=== PATIENT | male | born 1975 | race Two or more races ===

== ENCOUNTER 2020-05-10 13:43 | Outpatient (REF) | payer OTHER, SELFPAY | END 2020-05-10 13:44 | disposition home or self-care (01) | LOC: HO.HMGCLDS 13:43 | PROVIDERS: Visit Provider Nurse Practitioner Family | DX: Z13.89 Encounter for screening for other disorder (principal) ==

== ENCOUNTER 2020-05-11 15:28 | Outpatient (REF) | payer OTHER, SELFPAY | END 2020-05-11 15:29 | disposition home or self-care (01) | LOC: HO.LAB 15:28 | PROVIDERS: Visit Provider Nurse Practitioner Family | DX: Z20.822 Contact with and (suspected) exposure to COVID-19 (principal) | CPT/HCPCS: 36415; U0003 ==

== ENCOUNTER 2020-05-19 06:15 | Outpatient (REF) | payer OTHER, SELFPAY ==
[2020-05-19 06:56] LABS: MANUAL DIFF FLAG NO
[2020-05-19 07:02] LABS: Basophils Absolute Auto 0.1 X10*3/uL (0.0-0.2); Basophils Percent Auto 1.6 % (0-2); Eosinophils Absolute Auto 0.5 X10*3/uL (0.0-0.4); Eosinophils Percent Auto 7.8 % (0-4); Hematocrit 48.8 % (42-52); Imm Gran Abs Auto 0.01 X10*3/uL (0.00-0.03); Imm Gran Pct Auto 0.2 % (0.0-0.4); Lymphocytes Absolute Auto 2.3 X10*3/uL (1.2-4.9); Mean Corpuscular HGB Conc 34.8 g/dl (31.0-36.0); Mean Corpuscular Hemoglobin 31.4 pg (27.0-33.0); Mean Corpuscular Volume 90.2 fL (80-98); Mean Platelet Volume 10.6 fL (9.4-12.4); Monocytes Absolute Auto 0.9 X10*3/uL (0.1-1.2); Monocytes Percent Auto 13.2 % (2-11); Neutrophils Absolute Auto 2.7 X10*3/uL (2.0-8.3); Neutrophils Percent Auto 41.2 % (45-73); Platelet Count 246 X10*3/uL (160-400); Red Blood Count 5.41 X10*6/uL (4.60-5.80); Red Cell Distribution Width 11.7 % (11.0-16.0); White Blood Count 6.4 X10*3/uL (4.8-10.8)
[2020-05-19 07:29] LABS: Alanine Aminotransferase 29 U/L (0-40); Albumin Level 4.5 g/dL (3.5-5.0); Alkaline Phosphatase 70 U/L (39-117); Aspartate Amino Transferase 19 U/L (5-37); Bilirubin Direct 0.4 mg/dL (0.0-0.5); Bilirubin Total 1.1 mg/dL (0.0-1.0)
[2020-05-19 07:39] LABS: Alanine Aminotransferase 28 U/L (0-40); Albumin Level 4.5 g/dL (3.5-5.0); Alkaline Phosphatase 70 U/L (39-117); Amylase 92 U/L (28-100); Anion Gap 9 (12-20); Aspartate Amino Transferase 19 U/L (5-37); Bilirubin Total 1.1 mg/dL (0.0-1.0); Blood Urea Nitrogen 16 mg/dL (9-16); Carbon Dioxide 31 mmol/L (22-29); Chloride 103 mmol/L (96-108); Estimated Glomerular Filt Rate > 60; Glucose Random 93 mg/dL (60-115); Lipase 73 U/L (8-78); Potassium 4.4 mmol/l (3.3-5.1); Sodium 139 mmol/L (135-145); Total Protein 6.9 g/dL (6.5-8.0)
[2020-05-19 07:51] LABS: TSH reflex Free T4 3.75 mIU/mL (0.32-4.0)
[2020-05-19 08:00] LABS: Estimated Average Glucose 100 mg/dL; Hemoglobin A1c % 5.1 %
[2020-05-20 16:22] LABS: Venous Lead <1 mcg/dL (<5)
== END 2020-05-19 06:16 | disposition home or self-care (01) ==
LOC: HO.LAB 06:15
PROVIDERS: PCP Internal Medicine; Referring Provider Nurse Practitioner Family; Visit Provider Nurse Practitioner Family
DX: R10.13 Epigastric pain (principal); Z87.19 Personal history of other diseases of the digestive system; Z83.3 Family history of diabetes mellitus
CPT/HCPCS: 36415; 80053; 80076; 82150; 82248; 83036; 83655; 83690; 84443; 85025

== ENCOUNTER 2020-08-16 12:16 | Outpatient (REF) | payer OTHER, SELFPAY ==
[2020-08-16 13:06] LABS: COVID-19 Test Positive (Negative)
== END 2020-08-16 12:17 | disposition home or self-care (01) ==
LOC: HO.LAB 12:16
PROVIDERS: Visit Provider Internal Medicine
DX: Z20.822 Contact with and (suspected) exposure to COVID-19 (principal)
CPT/HCPCS: 36415; 87635; C9803

== ENCOUNTER 2021-07-25 05:36 | Emergency (ER) | payer OTHER, SELFPAY ==
--- NOTE | ~2021-07-25 | XR_ITS ---
EXAMINATION: XR CHEST CLINICAL INFORMATION: Chest pain COMPARISON: 06.15.2017 TECHNIQUE: Frontal view of the chest was obtained. FINDINGS: No significant abnormality is noted involving the heart, lungs, mediastinum, bony thorax or soft tissues. XR/XR chest 1V IMPRESSION: Unremarkable examination.
--- NOTE | 2021-07-25 05:37 | ECG_ITS ---
Test Reason : CP Blood Pressure : / mmHG Vent. Rate : 073 BPM Atrial Rate : 073 BPM P-R Int : 138 ms QRS Dur : 080 ms QT Int : 368 ms P-R-T Axes : 041 059 035 degrees QTc Int : 405 ms Normal sinus rhythm with sinus arrhythmia Normal ECG When compared to the previous EKG of No significant changes seen Referred By: Generic ED Physician Electronically Signed By:NAREN SAUNDERS MD
[2021-07-25 05:41] VITALS: BP 144/84; PULSE 80; RESP 18; TEMP 36.6; O2SAT 99; BMI 24.3
[2021-07-25 05:58] LABS: MANUAL DIFF FLAG NO
[2021-07-25 05:59] LABS: Basophils Absolute Auto 0.1 X10*3/uL (0.0-0.2); Basophils Percent Auto 1.3 % (0-2); Eosinophils Absolute Auto 0.4 X10*3/uL (0.0-0.4); Eosinophils Percent Auto 5.4 % (0-4); Hematocrit 47.7 % (42.0-52.0); Hemoglobin 16.7 g/dl (14.0-18.0); Imm Gran Abs Auto 0.02 X10*3/uL (0.00-0.03); Imm Gran Pct Auto 0.3 % (0.0-0.4); Lymphocytes Absolute Auto 2.2 X10*3/uL (1.2-4.9); Lymphocytes Percent Auto 31.7 % (20-40); Mean Corpuscular Hemoglobin 31.3 pg (27.0-33.0); Mean Corpuscular Volume 89.5 fL (80.0-98.0); Monocytes Absolute Auto 0.7 X10*3/uL (0.1-1.2); Monocytes Percent Auto 9.9 % (2-11); Neutrophils Absolute Auto 3.5 x10*3/uL (2.0-8.3); Neutrophils Percent Auto 51.4 % (45-73); Platelet Count 235 X10*3/uL (160-400); Red Blood Count 5.33 X10*6/uL (4.60-5.80); Red Cell Distribution Width 11.9 % (11.0-16.0); White Blood Count 6.8 X10*3/uL (4.8-10.8)
[2021-07-25 06:12] LABS: Anion Gap 11 (12-20); Blood Urea Nitrogen 14 mg/dL (9-16); Calcium 9.2 mg/dL (8.4-10.2); Carbon Dioxide 25 mmol/L (22-29); Chloride 107 mmol/L (96-108); Creatinine Clr Calc Pharmacy 113.5; Estimated Glomerular Filt Rate > 60; Glucose Random 122 mg/dL (60-115); Potassium 3.9 mmol/L (3.3-5.1); Sodium 139 mmol/L (135-145)
[2021-07-25 06:19] LABS: Troponin-I High Sensitivity < 3.5 ng/L (<3.5-35.0)
[2021-07-25 07:56] LABS: Troponin-I High Sensitivity < 3.5 ng/L (<3.5-35.0)
--- NOTE | 2021-07-25 08:35 | ED_ITS ---
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 3 days of intermittent chest pain. Worse with movement, denies injury, fever or cough. Not heavy lifting or injury. States the movement makes the pain worse and lying down. complaint: chest pain Onset (ago): day(s) Timing of current episode: episodic Onset: other (with upper body movement and deep breathing) Pain location: left chest Severity: mild Quality: aching Treatment prior to arrival: none Risk Factors Coronary artery disease risk factors: smoking history and cocaine use Related Data Previous Rx's Medication Instructions Recorded omeprazole 20 mg capsule,delayed 20 mg PO DAILY 14 Days #14 cap 05/10/20 release omeprazole 20 mg capsule,delayed 20 mg PO DAILY #30 cap 06/08/20 release albuterol sulfate 90 mcg/actuation 2 puff INHALATION Q6H PRN 90 Days 08/13/20 aerosol inhaler (ProAir HFA) #8.5 g albuterol sulfate 2.5 mg (3 mL) INHALATION QID PRN 11/25/20 #90 ml nebulizers (Aeroneb Go Nebulizer) #1 ea 11/25/20 benzonatate 100 mg capsule 100 mg PO TID PRN #20 cap 11/26/20 (Tessalon Perles) naproxen 500 mg tablet (Naprosyn) 500 mg PO BID #20 tab 07/25/21 Allergies Allergy/AdvReac Type Severity Reaction Status Date / Time shellfish derived Allergy Severe ANAPHYLAXIS Verified 05/10/20 13:01 [SHELLFISH DERIVED] Review of Systems Constitutional: Constitutional: Reports no additional constitutional complaints Eyes: Eyes: Reports no additional eye complaints ENT: Denies dizziness Cardiovascular: Cardiovascular: Reports no additional cardiovascular complaints Respiratory: Respiratory: Reports as per HPI Gastrointestinal: Gastrointestinal: Reports no additional gastrointestinal complaints Musculoskeletal: Musculoskeletal: Reports no additional musculoskeletal complaints Integumentary/Breasts: Skin/Breast: Denies rash Neurologic: Reports system reviewed and no additional complaints, except as documented, Denies dizziness and Denies Sensory deficit (Neuro) Psychiatric: Psychiatric: Denies anxiety PMFSH Past Medical History Medical History Family history of diabetes mellitus History of liver disease Family History Family History Father Heart problem Liver problem Mother Liver cancer Social History Social History Alcohol intake: never Advance Directives: No Advance Directives Information Provided: No Physical Exam Vital Signs: Vital Signs: Last Vital Signs Temp 97.9 F 07/25/21 05:41 Pulse 80 07/25/21 05:41 Resp 18 07/25/21 05:41 BP 144/84 H 07/25/21 05:41 Pulse Ox 99 07/25/21 05:41 BMI result Body Mass Index 24.3 Const: General: healthy appearing Nutritional Appearance: average body habitus Orientation/consciousness: oriented to person and patient oriented x3 Limitations: no limitations HEENT: Head: Yes normal to inspection Ears: external ears normal General nose exam: Normal external nose present Mouth: Normal oral and palatal mucosa present and oropharynx normal Throat: Yes posterior oropharynx normal Eyes: General: appearance normal, both eyes and all related structures Neck: Other: supple Neck: Yes normal visual inspection Chest: Other: left chest reproducible pain to palpation Resp: Auscultation: clear to auscultation bilaterally Cardio: Jugular venous distension: no JVD Rate: regular rate Rhythm: regular rhythm Heart sounds: S1 normal heart sound present and S2 normal heart sound present GI: Inspection: Yes normal to inspection Palpation (GI): Soft to palpation, nontender and No hepatosplenomegaly present Auscultation: normal bowel sounds : General: Yes no CVA tenderness Back/Spine/Pelvis: Back: no CVA tenderness Skin: General skin exam: no rashes or lesions noted Neuro: General: oriented to person and patient oriented x3 Cranial nerves: Yes CN's II-XII intact bilaterally Motor exam (neuro): 5/5 motor strength present throughout Sensory Exam: No Sensory deficit (Neuro) Extrem: General: Yes normal to inspection Psych: Appearance: grossly normal Course Reevaluation(s) Reevaluation #1: Patient with reproducible pain to palpation, normal EKG and serial troponins. It appears that the patient is having inflammation of the chest wall, will dc home Time: 08:45 MDM - Chest Pain Lab Data Result diagrams: 07/25/21 05:53 07/25/21 05:53 Labs: Lab Results 07/25/21 07/25/21 07/25/21 Range/Units 05:53 05:53 05:53 WBC 6.8 (4.8-10.8) X10*3/uL RBC 5.33 (4.60-5.80) X10*6/uL Hgb 16.7 (14.0-18.0) g/dl Hct 47.7 (42.0-52.0) % MCV 89.5 (80.0-98.0) fL MCH 31.3 (27.0-33.0) pg MCHC 35.0 (31.0-36.0) g/dl RDW 11.9 (11.0-16.0) % Plt Count 235 (160-400) X10*3/uL MPV 10.0 (9.4-12.4) fL Immature Gran % (Auto) 0.3 (0.0-0.4) % Neut % (Auto) 51.4 (45-73) % Lymph % (Auto) 31.7 (20-40) % [place] % (Auto) 9.9 (2-11) % Eos % (Auto) 5.4 H (0-4) % Baso % (Auto) 1.3 (0-2) % Lymph # (Auto) 2.2 (1.2-4.9) X10*3/uL [place] # (Auto) 0.7 (0.1-1.2) X10*3/uL Eos # (Auto) 0.4 (0.0-0.4) X10*3/uL Baso # (Auto) 0.1 (0.0-0.2) X10*3/uL Abs Immat Gran (auto) 0.02 (0.00-0.03) X10*3/uL Absolute Neuts (auto) 3.5 (2.0-8.3) x10*3/uL Absolute Nucleated RBC 0.000 (0.0-0.012) X10*3/uL Nucleated RBC % (auto) 0.0 (0.0-0.2) /100WBC Sodium 139 (135-145) mmol/L Potassium 3.9 (3.3-5.1) mmol/L Chloride 107 (96-108) mmol/L Carbon Dioxide 25 (22-29) mmol/L Anion Gap 11 L (12-20) BUN 14 (9-16) mg/dL Creatinine 0.83 (0.5-1.4) mg/dL Estim Creat Clear Calc 113.5 Estimated GFR > 60 Random Glucose 122 H (60-115) mg/dL Calcium 9.2 (8.4-10.2) mg/dL Troponin I High Sens < 3.5 (<3.5-35.0) ng/L 07/25/21 Range/Units 07:33 WBC (4.8-10.8) X10*3/uL RBC (4.60-5.80) X10*6/uL Hgb (14.0-18.0) g/dl Hct (42.0-52.0) % MCV (80.0-98.0) fL MCH (27.0-33.0) pg MCHC (31.0-36.0) g/dl RDW (11.0-16.0) % Plt Count (160-400) X10*3/uL MPV (9.4-12.4) fL Immature Gran % (Auto) (0.0-0.4) % Neut % (Auto) (45-73) % Lymph % (Auto) (20-40) % [place] % (Auto) (2-11) % Eos % (Auto) (0-4) % Baso % (Auto) (0-2) % Lymph # (Auto) (1.2-4.9) X10*3/uL [place] # (Auto) (0.1-1.2) X10*3/uL Eos # (Auto) (0.0-0.4) X10*3/uL Baso # (Auto) (0.0-0.2) X10*3/uL Abs Immat Gran (auto) (0.00-0.03) X10*3/uL Absolute Neuts (auto) (2.0-8.3) x10*3/uL Absolute Nucleated RBC (0.0-0.012) X10*3/uL Nucleated RBC % (auto) (0.0-0.2) /100WBC Sodium (135-145) mmol/L Potassium (3.3-5.1) mmol/L Chloride (96-108) mmol/L Carbon Dioxide (22-29) mmol/L Anion Gap (12-20) BUN (9-16) mg/dL Creatinine (0.5-1.4) mg/dL Estim Creat Clear Calc Estimated GFR Random Glucose (60-115) mg/dL Calcium (8.4-10.2) mg/dL Troponin I High Sens < 3.5 (<3.5-35.0) ng/L ECG Data ECG #1: Attestation: I personally reviewed and interpreted this ECG as follows: Interpretation: sinus 72, no st or twave changes Discharge Plan Discharge Clinical Impression: Chest pain, Costalchondritis Patient Disposition: Home, Self-Care Instructions: Costochondritis (ED), Thoracic Pain (ED) Prescriptions: New naproxen [Naprosyn] 500 mg tablet 500 mg PO BID Qty: 20 0RF No Action omeprazole 20 mg capsule,delayed release(DR/EC) 20 mg PO DAILY Qty: 30 0RF albuterol sulfate [ProAir HFA] 90 mcg/actuation HFA aerosol inhaler 2 puff inhalation Q6H PRN (Reason: shortness of breath or wheezing) 90 Days Qty: 8.5 0RF albuterol sulfate 2.5 mg /3 mL (0.083 %) solution for nebulization 2.5 mg inhalation QID PRN (Reason: shortness of breath or wheezing) Qty: 90 0RF (DME) Aeroneb Go Nebulizer Misc See Rx Instructions .Route Qty: 1 0RF Rx Instructions: As directed benzonatate [Tessalon Perles] 100 mg capsule 100 mg PO TID PRN (Reason: cough) Qty: 20 0RF omeprazole 20 mg capsule,delayed release(DR/EC) 20 mg PO DAILY 14 Days Qty: 14 0RF Referrals: Zay Angeles MD [Primary Care Provider] - 5 days
== END 2021-07-25 09:15 | disposition home or self-care (01) ==
PROVIDERS: Emergency Provider Emergency Medicine; PCP Internal Medicine
DX: R07.9 Chest pain, unspecified (principal); M94.0 Chondrocostal junction syndrome [Tietze]; F17.200 Nicotine dependence, unspecified, uncomplicated
CPT/HCPCS: 36415; 71045; 80048; 84484; 85025; 93005; 99283; 99284

== ENCOUNTER 2021-08-16 11:43 | Outpatient (REF) | payer OTHER, SELFPAY ==
[2021-08-16 12:37] LABS: Influenza A PCR POSITIVE (Negative); Influenza B PCR NEGATIVE (Negative); Resp Syncy Virus RNA Qual PCR NEGATIVE (Negative); SARS COV2 PCR INHOUSE NEGATIVE (Negative)
== END 2021-08-16 11:44 | disposition home or self-care (01) ==
LOC: HO.LNP 11:43
PROVIDERS: Visit Provider Nurse Practitioner Acute Care
DX: R68.89 Other general symptoms and signs (principal); Z20.822 Contact with and (suspected) exposure to COVID-19
CPT/HCPCS: 0241U

== ENCOUNTER 2021-12-01 11:41 | Outpatient (REF) | payer OTHER, SELFPAY ==
[2021-12-01 13:49] LABS: MANUAL DIFF FLAG NO
[2021-12-01 13:53] LABS: Basophils Absolute Auto 0.1 X10*3/uL (0.0-0.2); Basophils Percent Auto 1.4 % (0-2); Eosinophils Absolute Auto 0.4 X10*3/uL (0.0-0.4); Eosinophils Percent Auto 5.6 % (0-4); Hematocrit 47.7 % (42.0-52.0); Hemoglobin 17.1 g/dl (14.0-18.0); Imm Gran Abs Auto 0.02 X10*3/uL (0.00-0.03); Imm Gran Pct Auto 0.3 % (0.0-0.4); Lymphocytes Absolute Auto 2.5 X10*3/uL (1.2-4.9); Lymphocytes Percent Auto 34.5 % (20-40); Mean Corpuscular HGB Conc 35.8 g/dl (31.0-36.0); Mean Corpuscular Hemoglobin 31.4 pg (27.0-33.0); Mean Corpuscular Volume 87.5 fL (80.0-98.0); Mean Platelet Volume 10.3 fL (9.4-12.4); Monocytes Absolute Auto 0.9 X10*3/uL (0.1-1.2); Monocytes Percent Auto 11.9 % (2-11); Neutrophils Absolute Auto 3.3 x10*3/uL (2.0-8.3); Neutrophils Percent Auto 46.3 % (45-73); Platelet Count 269 X10*3/uL (160-400); Red Blood Count 5.45 X10*6/uL (4.60-5.80); Red Cell Distribution Width 12.2 % (11.0-16.0); White Blood Count 7.1 X10*3/uL (4.8-10.8)
[2021-12-01 14:12] LABS: Alanine Aminotransferase 34 U/L (0-40); Albumin Level 4.4 g/dL (3.5-5.0); Alkaline Phosphatase 62 U/L (39-117); Anion Gap 13 (12-20); Aspartate Amino Transferase 20 U/L (5-37); Bilirubin Total 0.7 mg/dL (0.0-1.0); Blood Urea Nitrogen 14 mg/dL (9-16); Carbon Dioxide 26 mmol/L (22-29); Chloride 106 mmol/L (96-108); Estimated Glomerular Filt Rate > 60; Glucose Random 86 mg/dL (60-115); Lactate Dehydrogenase 214 U/L (118-273); Potassium 4.1 mmol/L (3.3-5.1); Sodium 141 mmol/L (135-145); Total Protein 7.2 g/dL (6.5-8.0)
[2021-12-01 14:34] LABS: TSH reflex Free T4 20.07 uIU/mL (0.32-4.0)
[2021-12-01 14:42] LABS: Vitamin B12 841 pg/mL (200-900)
[2021-12-06 17:21] LABS: Vitamin D 25-OH, D2 <4 ng/mL; Vitamin D 25-OH, D3 17 ng/mL; Vitamin D 25-OH, Total 17 ng/mL (30-100)
== END 2021-12-01 11:42 | disposition home or self-care (01) ==
LOC: HO.HMGCLDS 11:41
PROVIDERS: PCP Internal Medicine; Visit Provider Internal Medicine
DX: M19.90 Unspecified osteoarthritis, unspecified site (principal); R14.0 Abdominal distension (gaseous); R52 Pain, unspecified; R53.83 Other fatigue
CPT/HCPCS: 36415; 80053; 82306; 82550; 82607; 83615; 84439; 84443; 85025

== ENCOUNTER 2021-12-29 09:03 | Outpatient (REF) | payer OTHER, SELFPAY ==
[2021-12-29 10:37] LABS: Free T4 (Free Thyroxine) 0.66 ng/dL (0.71-1.85); Thyroid Stimulating Hormone 17.06 uIU/mL (0.32-4.0)
== END 2021-12-29 09:04 | disposition home or self-care (01) ==
LOC: HO.LAB 09:03
PROVIDERS: PCP Internal Medicine; Visit Provider Internal Medicine
DX: E03.9 Hypothyroidism, unspecified (principal)
CPT/HCPCS: 36415; 84439; 84443

== ENCOUNTER 2022-01-10 10:59 | Outpatient (REF) | payer OTHER, SELFPAY ==
[2022-01-10 11:57] LABS: Binax Internal Control QC Valid; Binax Now Covid-19 Ag Negative (Negative)
== END 2022-01-10 11:00 | disposition home or self-care (01) ==
LOC: HO.HMGCLDS 10:59
PROVIDERS: Visit Provider Physician Assistant
DX: J06.9 Acute upper respiratory infection, unspecified (principal); Z20.822 Contact with and (suspected) exposure to COVID-19
CPT/HCPCS: 87811; C9803

== ENCOUNTER 2022-02-27 15:11 | Outpatient (AMB) | payer OTHER, SELFPAY ==
[2022-02-27 15:13] VITALS: BP 128/90; PULSE 80; TEMP 36.2; O2SAT 98; BMI 25.4
--- NOTE | 2022-02-27 15:13 | A.OFFPC_ITS ---
Vital Signs 02/27/22 15:13 Height 5 ft 9 in Weight 172 lb BMI 25.4 BP 128/90 H Blood Pressure Location Lt brachial Position Sitting Pulse 80 Pulse Source Pulse Oximeter Temp 97.1 F Temp Source Skin Pulse Oximetry (%) 98 Oxygen Delivery Method Room Air Intake Visit Reasons: follow up on labs Piping Blocker Required: No Allergies shellfish derived [SHELLFISH DERIVED] Allergy (Severe, Verified 02/27/22 15:14) ANAPHYLAXIS Tobacco use date assessed: 02/27/22 [facility] Medical History (Updated 01/11/22 @ 19:11 by Zay Angeles MD) Depression Family history of diabetes mellitus Hepatitis B core antibody positive History of drug abuse History of hepatitis C History of liver disease Hypertension Hypothyroidism (acquired) Vitamin D deficiency Surgical History (Updated 01/11/22 @ 18:59 by Zay Angeles MD) History of right knee surgery (~1996) No pertinent past surgical history Family History Father Heart problem Liver problem Mother Liver cancer Social History Housing: House Alcohol intake: never Patient Tobacco Use Status: Never used Tobacco e-Cigarette/Vaping Use: Never Used Second Hand Smoke Exposure: No service: No Current occupational status: employed Current occupational exposures/hazards: No Cognitive needs: No Hearing needs: No Vision needs: No Questionnaire PHQ-9 Over the last 2 weeks, how often have you been bothered by any of the following problems? 1. Little interest or pleasure in doing things: not at all 2. Feeling down, depressed, or hopeless: not at all 3. Trouble falling or staying asleep, or sleeping too much: not at all 4. Feeling tired or having little energy: not at all 5. Poor appetite or overeating: not at all 6. Feeling bad about yourself - or that you are a failure or have let yourself or your family down: not at all 7. Trouble concentrating on things, such as reading the newspaper or watching television: not at all 8. Moving or speaking so slowly that other people could have noticed. Or the opposite - being so fidgety or restless that you have been moving around a lot more than usual: not at all 9. Thoughts that you would be better off or of hurting yourself in some way: not at all Total score: 0 Depression Screening Interpretation: Negative 29256 - PHQ-9 Billing: Yes Source: Developed by Drs. Devyn Dugan, Maia Cox, Gurinder Arias and colleagues, with an educational carrillo from [employer]. Thrive Questionnaire Declines Thrive assessment: No Date Thrive assessed: 02/27/22 I am a: Patient What is your living situation today?: I have a steady place to live Within the past 12 months, did the food you bought not last and you didn't have the money to get more?: Never true Within the past 12 months, did you worry whether your food would run out before you got money to buy more?: Never true Do you have trouble paying for medicines?: No Do you have trouble getting transportation to medical appointments?: No Do you have trouble paying your heating and electricity bill?: No Do you have trouble taking care of your child, family member or friend?: No Do you have trouble with day-to-day activities such as bathing, preparing meals, shopping, managing finances, etc.?: No Are you currently unemployed and looking for a job?: No Are you interested in more education?: No Currently or been in a relationship where the following occur: no concerns reported AUDIT C Alcohol Use Questionnaire (AUDIT-C) 1. How often do you have a drink containing alcohol?: Never 3. How often do you have six or more drinks on one occasion?: Never Total Score: 0 Score Reviewed/Action Taken: No JONH-7 AMB Questionnaire JONH-7 Date JONH - 7 assessed: 01/11/22 Feeling nervous, anxious, or on edge: 0 = Not at all Not being able to stop or control worryin = Not at all Worrying too much about different things: 0 = Not at all Trouble relaxin = Not at all Being so restless that it is hard to sit still: 0 = Not at all Becoming easily annoyed or irritable: 0 = Not at all Feeling afraid as if something awful might happen: 0 = Not at all Total JONH-7 score (0-4 normal; 5-9 mild; 10-14 moderate; 15-21 severe): 0 Source: Developed by Drs. Devyn Dugan, Maia Cox, Gurinder Arias and colleagues, with an educational carrillo from [employer]. JONH-7 Assessment Billing JONH-7 Assessment Tool: JONH-7 Assessment 63160 Physical exam (Primary Care) Vital Signs: Last Vital Signs Temp 97.1 F 02/27/22 15:13 Pulse 80 02/27/22 15:13 BP 128/90 H 02/27/22 15:13 Pulse Ox 98 02/27/22 15:13 Oxygen Delivery Method Room Air 02/27/22 15:13 BMI result Body Mass Index 25.4 Tobacco/Smoking Status: Tobacco use Status Tobacco use date assessed 02/27/22 02/27/22 15:14 Patient Tobacco Use Status Never used Tobacco 02/27/22 15:14 e-Cigarette/Vaping Use Never Used 02/27/22 15:14 PHQ-9: PHQ-9 Score PHQ-9: Total score 0 02/27/22 15:14 Depression Screening Interpretation: Negative Thrive Assessment: Date of Thrive Assessment Date Thrive assessed 02/27/22 02/27/22 15:14 Currently or been in a relationship where the following occur: no concerns reported Assessment and Plan Assessment & Plan (1) Hypothyroidism (acquired): Code(s): E03.9 - Hypothyroidism, unspecified Plan: TFTs done back in December 2021 are still OFF Will increase his Levothyroxine from 25 mcg QD to 50 mcg QD Will have him recheck his TFTs in 2 months for follow up (2) Asthma: Code(s): J45.909 - Unspecified asthma, uncomplicated Qualifiers: Asthma severity: mild Asthma persistence: intermittent Asthma complication type: uncomplicated Qualified Code(s): J45.20 - Mild intermittent asthma, uncomplicated Plan: Continue Albuterol HFA 1 to 2 inhalations every 6 hours as needed Patient reports that he still uses his inhaler about once a day on average - advised that his asthma is considered NOT controlled if he generally has to use his rescue inhaler more than 3 to 4 times a week and may indicate the need for a controller inhaler to be used daily Will need to do PFTs for further evaluation if this still has not improved at his next follow up appt (3) Vitamin D deficiency: Code(s): E55.9 - Vitamin D deficiency, unspecified Plan: Continue Vitamin D3 2000 units QD Will recheck Vitamin D level in 2 months for follow up (4) History of hepatitis C: Comment: S/P Tx with [facility] by Dr. Gibbons back in 2015 - 2016 Code(s): Z86.19 - Personal history of other infectious and parasitic diseases Plan: S/P Tx with [facility] back [place] [address] Gibbons Hep C genotype 1a Will recheck his viral load/activity at his next annual physical exam for follow up Plan Follow up in 2 to 3 months Orders: Orders Free T4 (Free Thyroxine) 2 Months E03.9 - Hypothyroidism, unspecified Thyroid Stimulating Hormone 2 Months E03.9 - Hypothyroidism, unspecified Vitamin D 25-OH Total 2 Months E55.9 - Vitamin D deficiency, unspecified Medications: New cholecalciferol (vitamin D3) 50 mcg PO DAILY 90 days 90 caps 3RF E55.9 - Vitamin D deficiency, unspecified Changed From levothyroxine (Synthroid) 25 mcg PO DAILY 30 days 30 tabs 2RF To levothyroxine 50 mcg PO DAILY 30 days 30 tabs 2RF Coding Level of Care Code Est Pt Level 4 (71667) Diagnoses Hypothyroidism (acquired) E03.9 Asthma J45.20 Asthma severity: mild Asthma persistence: intermittent Asthma complication type: uncomplicated Vitamin D deficiency E55.9 History of hepatitis C Z86.19 Additional Codes JONH-7 Assessment Billing - JONH-7 Assessment Tool: JONH-7 Assessment 21920 ([id number]) PHQ-9 - 46499 - PHQ-9 Billing: Yes ([id number])
--- NOTE | 2022-02-27 15:13 | MHC.PC.OV ---
Vital Signs 02/27/22 15:13 Height 5 ft 9 in Weight 172 lb BMI 25.4 BP 128/90 H Blood Pressure Location Lt brachial Position Sitting Pulse 80 Pulse Source Pulse Oximeter Temp 97.1 F Temp Source Skin Pulse Oximetry (%) 98 Oxygen Delivery Method Room Air Intake Visit Reasons: follow up on labs Meat Packager Required: No Allergies shellfish derived [SHELLFISH DERIVED] Allergy (Severe, Verified 06/03/24 17:06) ANAPHYLAXIS Medication List - Last Reconciled 06/09/24 by Zay Angeles MD epinephrine (EpiPen) 0.3 mg (0.3 mL) IM Q4H PRN Ventolin HFA 90 mcg/actuation (albuterol sulfate) 2 puffs inhalation Q6-8H PRN NS Tobacco use date assessed: 02/27/22 HPI follow up on labs HPI Details Patient comes in today for his follow-up visit States that he feels okay although he still feels fatigued often He denies any headaches or dizziness Denies any chest pains, no increased shortness of breath No nausea/vomiting, no abdominal pain No change in bowel habits noted He had his repeat TFTs done a couple of months ago - to discuss his results [facility] Medical History (Updated 06/09/24 @ 00:55 by Zay Angeles MD) Overweight (BMI 25.0-29.9) Vitamin D deficiency Hypothyroidism (acquired) History of drug abuse Depression Hepatitis B core antibody positive Hypertension History of hepatitis C Family history of diabetes mellitus History of liver disease Surgical History (Updated 06/03/24 @ 17:11 by Zay Angeles MD) History of right knee surgery (~1996) Family History Father Heart problem Liver problem Mother Liver cancer Social History Housing: House Alcohol intake: never Patient Tobacco Use Status: Never used Tobacco e-Cigarette/Vaping Use: Never Used Second Hand Smoke Exposure: No service: No Current occupational status: employed Current occupational exposures/hazards: No Cognitive needs: No Hearing needs: No Vision needs: No Questionnaire PHQ-9 Over the last 2 weeks, how often have you been bothered by any of the following problems? 1. Little interest or pleasure in doing things: not at all 2. Feeling down, depressed, or hopeless: not at all 3. Trouble falling or staying asleep, or sleeping too much: not at all 4. Feeling tired or having little energy: not at all 5. Poor appetite or overeating: not at all 6. Feeling bad about yourself - or that you are a failure or have let yourself or your family down: not at all 7. Trouble concentrating on things, such as reading the newspaper or watching television: not at all 8. Moving or speaking so slowly that other people could have noticed. Or the opposite - being so fidgety or restless that you have been moving around a lot more than usual: not at all 9. Thoughts that you would be better off or of hurting yourself in some way: not at all Total score: 0 Depression Screening Interpretation: Negative 97969 - PHQ-9 Billing: Yes Source: Developed by Drs. Devyn Dugan, Maia Cox, Gurinder Arias and colleagues, with an educational carrillo from [employer]. Thrive Questionnaire Declines Thrive assessment: No Date Thrive assessed: 02/27/22 I am a: Patient What is your living situation today?: I have a steady place to live Within the past 12 months, did the food you bought not last and you didn't have the money to get more?: Never true Within the past 12 months, did you worry whether your food would run out before you got money to buy more?: Never true Do you have trouble paying for medicines?: No Do you have trouble getting transportation to medical appointments?: No Do you have trouble paying your heating and electricity bill?: No Do you have trouble taking care of your child, family member or friend?: No Do you have trouble with day-to-day activities such as bathing, preparing meals, shopping, managing finances, etc.?: No Are you currently unemployed and looking for a job?: No Are you interested in more education?: No Currently or been in a relationship where the following occur: no concerns reported AUDIT C Alcohol Use Questionnaire (AUDIT-C) 1. How often do you have a drink containing alcohol?: Never 3. How often do you have six or more drinks on one occasion?: Never Total Score: 0 Score Reviewed/Action Taken: No JONH-7 AMB Questionnaire JONH-7 Date JONH - 7 assessed: 01/11/22 Feeling nervous, anxious, or on edge: 0 = Not at all Not being able to stop or control worryin = Not at all Worrying too much about different things: 0 = Not at all Trouble relaxin = Not at all Being so restless that it is hard to sit still: 0 = Not at all Becoming easily annoyed or irritable: 0 = Not at all Feeling afraid as if something awful might happen: 0 = Not at all Total JONH-7 score (0-4 normal; 5-9 mild; 10-14 moderate; 15-21 severe): 0 Source: Developed by Drs. Devyn Dugan, Maia Cox, Gurinder Arias and colleagues, with an educational carrillo from [employer]. JONH-7 Assessment Billing JONH-7 Assessment Tool: JONH-7 Assessment 22882 Review of Systems Const Denies chills, Reports fatigue, Denies fever(s) and Denies headache(s) ENT Denies dysphagia, Denies dizziness, Denies headache(s), Denies neck pain, Denies odynophagia, Denies sinus pain and Denies sore throat Card Denies chest pain, Denies palpitations and Denies dyspnea Resp Denies chest congestion, Denies cough and Denies dyspnea GI Denies abdominal pain, Denies constipation, Denies dysphagia, Denies heartburn, Denies diarrhea, Denies nausea, Denies odynophagia and Denies vomiting Denies dysuria, Denies nocturia and Denies urinary frequency Musc Reports back pain (on and off, with the lower back) and Denies neck pain Skin/Breast Denies rash Neuro Denies dizziness and Denies headache(s) Endo Reports fatigue and Denies palpitations Physical exam (Primary Care) Vital Signs: Last Vital Signs Temp 97.1 F 02/27/22 15:13 Pulse 80 02/27/22 15:13 BP 128/90 H 02/27/22 15:13 Pulse Ox 98 02/27/22 15:13 Oxygen Delivery Method Room Air 02/27/22 15:13 BMI result Body Mass Index 25.4 Tobacco/Smoking Status: Tobacco use Status Tobacco use date assessed 02/27/22 02/27/22 15:14 Patient Tobacco Use Status Never used Tobacco 02/27/22 15:14 e-Cigarette/Vaping Use Never Used 02/27/22 15:14 PHQ-9: PHQ-9 Score PHQ-9: Total score 0 02/27/22 15:33 Depression Screening Interpretation: Negative Thrive Assessment: Date of Thrive Assessment Date Thrive assessed 02/27/22 02/27/22 15:14 Currently or been in a relationship where the following occur: no concerns reported Const General: no acute distress and alert HENMT Ears: TM's normal bilaterally and EAC's normal Throat: Yes posterior oropharynx normal and Yes tonsils normal (no TP congestion) Neck Neck: Yes supple and No lymphadenopathy Thyroid: Thyroid normal Resp Auscultation: clear to auscultation bilaterally, no rales and no wheezes Cardio Rate: regular rate Rhythm: regular rhythm Heart sounds: no murmurs GI Palpation (GI): Soft to palpation and nontender Auscultation: normal bowel sounds General: Yes no CVA tenderness Back/Spine/Pelvis Back: no CVA tenderness Thoracic/Lumbar Spine: lumbar spinal tenderness (mild) Skin Rashes: no rashes Extrem General: Yes no clubbing, cyanosis or edema Results Reviewed Results Reviewed: Laboratory Tests 12/01/21 12/29/21 11:47 09:15 WBC 7.1 Hgb 17.1 Hct 47.7 Plt Count 269 Sodium 141 Potassium 4.1 Creatinine 0.83 Estimated GFR > 60 Random Glucose 86 Calcium 9.0 AST 20 ALT 34 Lactate Dehydrogenase 214 Vitamin B12 841 25-OH Vitamin D Total 17 L 25-Hydroxy Vitamin D3 17 TSH 20.07 H 17.06 H Free T4 0.60 L 0.66 L Coding Level of Care Code Est Pt Level 4 (76064) Diagnoses Hypothyroidism (acquired) E03.9 Mild intermittent asthma without complication J45.20 Asthma complication type: uncomplicated Asthma persistence: intermittent Asthma severity: mild Vitamin D deficiency E55.9 History of hepatitis C Z86.19 Additional Codes JONH-7 Assessment Billing - JONH-7 Assessment Tool: JONH-7 Assessment 79185 ([id number]) PHQ-9 - 25446 - PHQ-9 Billing: Yes ([id number])
== END 2022-02-27 15:37 | disposition home or self-care (01) ==
LOC: HO.HMGH 15:11
PROVIDERS: PCP Internal Medicine; Visit Provider Internal Medicine
DX: E03.9 Hypothyroidism, unspecified (principal); J45.20 Mild intermittent asthma, uncomplicated; E55.9 Vitamin D deficiency, unspecified; Z86.19 Personal history of other infectious and parasitic diseases
CPT/HCPCS: 99499

== ENCOUNTER 2022-05-22 15:18 | Outpatient (AMB) | payer OTHER, SELFPAY ==
--- NOTE | 2022-05-22 15:21 | A.OFFPC_ITS ---
Vital Signs 05/22/22 15:22 Height 5 ft 9 in Weight 171 lb BMI 25.2 BP 110/60 Blood Pressure Location Lt brachial Position Sitting Pulse 77 Pulse Source Pulse Oximeter Temp 97.9 F Temp Source Skin Pulse Oximetry (%) 97 Oxygen Delivery Method Room Air Intake Visit Reasons: 3mth f/u Intake Note: pt is here for a 3m f/u Allergies shellfish derived [SHELLFISH DERIVED] Allergy (Severe, Verified 05/22/22 16:04) ANAPHYLAXIS Medication List - Last Reconciled 05/22/22 by Zay Angeles MD cholecalciferol (vitamin D3) 50 mcg PO DAILY 90 days epinephrine (EpiPen) 0.3 mg (0.3 mL) IM Q4H PRN epinephrine 0.3 mg IM Q4H PRN levothyroxine 50 mcg PO DAILY 30 days ProAir HFA 90 mcg/actuation (albuterol sulfate) 2 puffs inhalation Q6H PRN NS Tobacco use date assessed: 05/22/22 HPI 3mth f/u HPI Details Patient comes in today for his follow up visit States that he feels okay Denies any headaches or dizziness Denies any chest pains, no SOB No nausea/vomiting, no abdominal pain No change in bowel habits noted PFSH Medical History Depression Family history of diabetes mellitus Hepatitis B core antibody positive History of drug abuse History of hepatitis C History of liver disease Hypertension Hypothyroidism (acquired) Vitamin D deficiency Surgical History History of right knee surgery (~1996) No pertinent past surgical history Family History Father Heart problem Liver problem Mother Liver cancer Social History Housing: House Alcohol intake: never Patient Tobacco Use Status: Never used Tobacco e-Cigarette/Vaping Use: Never Used Second Hand Smoke Exposure: No service: No Current occupational status: employed Current occupational exposures/hazards: No Cognitive needs: No Hearing needs: No Vision needs: No Questionnaire PHQ-9 Over the last 2 weeks, how often have you been bothered by any of the following problems? 1. Little interest or pleasure in doing things: not at all 2. Feeling down, depressed, or hopeless: not at all 3. Trouble falling or staying asleep, or sleeping too much: not at all 4. Feeling tired or having little energy: not at all 5. Poor appetite or overeating: not at all 6. Feeling bad about yourself - or that you are a failure or have let yourself or your family down: not at all 7. Trouble concentrating on things, such as reading the newspaper or watching television: not at all 8. Moving or speaking so slowly that other people could have noticed. Or the opposite - being so fidgety or restless that you have been moving around a lot more than usual: not at all 9. Thoughts that you would be better off or of hurting yourself in some way: not at all Total score: 0 Depression Screening Interpretation: Negative 70905 - PHQ-9 Billing: Yes Source: Developed by Drs. Devyn Dugan, Maia Cox, Gurinder Arias and colleagues, with an educational carrillo from [employer]. Thrive Questionnaire Declines Thrive assessment: No Date Thrive assessed: 05/22/22 I am a: Patient What is your living situation today?: I have a steady place to live Within the past 12 months, did the food you bought not last and you didn't have the money to get more?: Never true Within the past 12 months, did you worry whether your food would run out before you got money to buy more?: Never true Do you have trouble paying for medicines?: No Do you have trouble getting transportation to medical appointments?: No Do you have trouble paying your heating and electricity bill?: No Do you have trouble taking care of your child, family member or friend?: No Do you have trouble with day-to-day activities such as bathing, preparing meals, shopping, managing finances, etc.?: No Are you currently unemployed and looking for a job?: No Are you interested in more education?: No Currently or been in a relationship where the following occur: no concerns reported AUDIT C Alcohol Use Questionnaire (AUDIT-C) 1. How often do you have a drink containing alcohol?: Never 3. How often do you have six or more drinks on one occasion?: Never Total Score: 0 Score Reviewed/Action Taken: Yes JONH-7 AMB Questionnaire JONH-7 Date JONH - 7 assessed: 05/22/22 Feeling nervous, anxious, or on edge: 0 = Not at all Not being able to stop or control worryin = Not at all Worrying too much about different things: 0 = Not at all Trouble relaxin = Not at all Being so restless that it is hard to sit still: 0 = Not at all Becoming easily annoyed or irritable: 0 = Not at all Feeling afraid as if something awful might happen: 0 = Not at all Total JONH-7 score (0-4 normal; 5-9 mild; 10-14 moderate; 15-21 severe): 0 Source: Developed by Drs. Devyn Dugan, Maia Cox, Gurinder Arias and colleagues, with an educational carrillo from [employer]. JONH-7 Assessment Billing JONH-7 Assessment Tool: JONH-7 Assessment [id number] Review of Systems Const Denies chills, Denies fatigue, Denies fever(s) and Denies headache(s) ENT Denies dysphagia, Denies dizziness, Denies headache(s), Denies neck pain, Denies odynophagia, Denies sinus pain and Denies sore throat Card Denies chest pain, Denies palpitations and Denies dyspnea Resp Denies cough and Denies dyspnea GI Denies abdominal pain, Denies constipation, Denies dysphagia, Denies heartburn, Denies diarrhea, Denies nausea, Denies odynophagia and Denies vomiting Denies dysuria and Denies nocturia Musc Denies neck pain Neuro Denies dizziness and Denies headache(s) Endo Denies fatigue and Denies palpitations Physical exam (Primary Care) Vital Signs: Last Vital Signs Temp 97.9 F 05/22/22 15:22 Pulse 77 05/22/22 15:22 BP 110/60 05/22/22 15:22 Pulse Ox 97 05/22/22 15:22 Oxygen Delivery Method Room Air 05/22/22 15:22 BMI result Body Mass Index 25.2 Tobacco/Smoking Status: Tobacco use Status Tobacco use date assessed 05/22/22 05/22/22 15:23 Patient Tobacco Use Status Never used Tobacco 05/22/22 15:23 e-Cigarette/Vaping Use Never Used 05/22/22 15:23 PHQ-9: PHQ-9 Score PHQ-9: Total score 0 05/22/22 15:23 Depression Screening Interpretation: Negative Thrive Assessment: Date of Thrive Assessment Date Thrive assessed 05/22/22 05/22/22 15:23 Currently or been in a relationship where the following occur: no concerns reported Assessment and Plan Assessment & Plan (1) Hypothyroidism (acquired): Code(s): E03.9 - Hypothyroidism, unspecified Plan: TFTs done back in December 2021 are still OFF Will increase his Levothyroxine from 25 mcg QD to 50 mcg QD Will have him recheck his TFTs in 2 months for follow up (2) Asthma: Code(s): J45.909 - Unspecified asthma, uncomplicated Qualifiers: Asthma severity: mild Asthma persistence: intermittent Asthma co mplication type: uncomplicated Qualified Code(s): J45.20 - Mild intermittent asthma, uncomplicated Plan: Continue Albuterol HFA 1 to 2 inhalations every 6 hours as needed Patient reports that he still uses his inhaler about once a day on average - advised that his asthma is considered NOT controlled if he generally has to use his rescue inhaler more than 3 to 4 times a week and may indicate the need for a controller inhaler to be used daily Will need to do PFTs for further evaluation if this still has not improved at his next follow up appt (3) Vitamin D deficiency: Code(s): E55.9 - Vitamin D deficiency, unspecified Plan: Continue Vitamin D3 2000 units QD Will recheck Vitamin D level in 2 months for follow up (4) History of hepatitis C: Comment: S/P Tx with [facility] by Dr. Gibbons back in 2015 - 2016 Code(s): Z86.19 - Personal history of other infectious and parasitic diseases Plan: S/P Tx with [facility] back [place] [address] Gibbons Hep C genotype 1a Will recheck his viral load/activity at his next annual physical exam for follow up Plan Follow up in 3 months Orders: Orders Comprehensive Met. Panel Today R53.83 - Other fatigue Complete Blood Count Auto Diff Today I10 - Essential (primary) hypertension, R53.83 - Other fatigue Coding Diagnoses Hypothyroidism (acquired) E03.9 Asthma J45.20 Asthma severity: mild Asthma persistence: intermittent Asthma complication type: uncomplicated Vitamin D deficiency E55.9 History of hepatitis C Z86.19 Additional Codes JONH-7 Assessment Billing - JONH-7 Assessment Tool: JONH-7 Assessment [id number] ([id number])
[2022-05-22 15:22] VITALS: BP 110/60; PULSE 77; TEMP 36.6; O2SAT 97; BMI 25.2
== END 2022-05-22 16:20 | disposition home or self-care (01) ==
LOC: HO.HMGH 15:18
PROVIDERS: PCP Internal Medicine; Visit Provider Internal Medicine
DX: E03.9 Hypothyroidism, unspecified (principal); J45.20 Mild intermittent asthma, uncomplicated; E55.9 Vitamin D deficiency, unspecified; Z86.19 Personal history of other infectious and parasitic diseases
CPT/HCPCS: 99499

== ENCOUNTER 2022-05-22 16:29 | Outpatient (REF) | payer OTHER, SELFPAY ==
[2022-05-22 16:40] LABS: MANUAL DIFF FLAG NO
[2022-05-22 16:50] LABS: Basophils Absolute Auto 0.1 X10*3/uL (0.0-0.2); Basophils Percent Auto 1.4 % (0-2); Eosinophils Absolute Auto 0.4 X10*3/uL (0.0-0.4); Eosinophils Percent Auto 5.1 % (0-4); Hemoglobin 16.7 g/dl (14.0-18.0); Imm Gran Abs Auto 0.02 X10*3/uL (0.00-0.03); Imm Gran Pct Auto 0.2 % (0.0-0.4); Lymphocytes Absolute Auto 2.9 X10*3/uL (1.2-4.9); Lymphocytes Percent Auto 34.7 % (20-40); Mean Corpuscular HGB Conc 34.8 g/dl (31.0-36.0); Mean Corpuscular Hemoglobin 30.8 pg (27.0-33.0); Mean Corpuscular Volume 88.4 fL (80.0-98.0); Mean Platelet Volume 9.9 fL (9.4-12.4); Monocytes Absolute Auto 1.1 X10*3/uL (0.1-1.2); Monocytes Percent Auto 13.3 % (2-11); Neutrophils Absolute Auto 3.8 x10*3/uL (2.0-8.3); Neutrophils Percent Auto 45.3 % (45-73); Platelet Count 265 X10*3/uL (160-400); Red Blood Count 5.43 X10*6/uL (4.60-5.80); White Blood Count 8.4 X10*3/uL (4.8-10.8)
[2022-05-22 17:25] LABS: Alanine Aminotransferase 36 U/L (0-40); Albumin Level 4.3 g/dL (3.5-5.0); Alkaline Phosphatase 71 U/L (39-117); Anion Gap 13 (12-20); Aspartate Amino Transferase 20 U/L (5-37); Bilirubin Total 0.7 mg/dL (0.0-1.0); Blood Urea Nitrogen 17 mg/dL (9-16); Carbon Dioxide 27 mmol/L (22-29); Chloride 107 mmol/L (96-108); Estimated Glomerular Filt Rate > 60; Glucose Random 80 mg/dL (60-115); Sodium 143 mmol/L (135-145)
[2022-05-22 17:41] LABS: Free T4 (Free Thyroxine) 0.67 ng/dL (0.71-1.85); Thyroid Stimulating Hormone 4.72 uIU/mL (0.32-4.0); Vitamin D 25-OH Total 17.9 ng/mL (>30)
== END 2022-05-22 16:30 | disposition home or self-care (01) ==
LOC: HO.LAB 16:29
PROVIDERS: PCP Internal Medicine; Visit Provider Internal Medicine
DX: E03.9 Hypothyroidism, unspecified (principal); E55.9 Vitamin D deficiency, unspecified; R53.83 Other fatigue; I10 Essential (primary) hypertension
CPT/HCPCS: 36415; 80053; 82306; 84439; 84443; 85025

== ENCOUNTER 2022-12-30 09:49 | Outpatient (AMB) | payer OTHER, SELFPAY ==
--- NOTE | 2022-12-30 09:50 | AM.OFFWIN_ITS ---
Intake Vital Signs 12/30/22 09:53 Weight 76.204 kg BP 100/70 Blood Pressure Location Rt brachial Position Sitting Pulse 83 Pulse Source Pulse Oximeter Temp 97.8 F Temp Source Oral Pulse Oximetry (%) 96 Oxygen Delivery Method Room Air Intake Visit Reasons: EST/rash Intake Note: PT c/o of rash and itchiness and pain on buttocks x 1 month Patient Tobacco Use Status: Never used Tobacco Allergies shellfish derived [SHELLFISH DERIVED] Allergy (Severe, Verified 12/30/22 09:53) ANAPHYLAXIS HPI HPI Comments History of Present Illness Details 1003 47 year old male history of hep C, asthm a presents w/ rash to buttocks and groin times a few days, patient reports rash is itchy and uncomfortable. Denies fevers, chills, numbness, tingling, recent illness, penile discharge, urinary changes, changes in bowel habits, chest pain, shortness of breath, headache, vision changes, dizziness weakness. Patient denies chance of STDs. Physical examination with maculopapular rash to bilateral buttocks, no signs of gangrene or necrotizing infection. Concerns for possible contact dermatitis versus heat rash versus folliculitis. Unlikely necrotizing infection, gangrene, fourniers. STD remains on differential. but patient denies concern Plan- prednisone and dc home w/ pcp follow-up. Educated patient on diagnosis and treatment plan, answered all question, patient verbalizes understanding. At this time patient will be discharged home, advised to return with new or worsening symptoms. Educated on worrisome signs and symptoms and when to return. At this time I feel comfortable discharge home. [facility] Medical History Vitamin D deficiency Hypothyroidism (acquired) History of drug abuse Depression Hepatitis B core antibody positive Hypertension History of hepatitis C Family history of diabetes mellitus History of liver disease Surgical History History of right knee surgery (~1996) No pertinent past surgical history Family History Father Heart problem Liver problem Mother Liver cancer Social History Housing: House Alcohol intake: never Patient Tobacco Use Status: Never used Tobacco e-Cigarette/Vaping Use: Never Used Second Hand Smoke Exposure: No service: No Current occupational status: employed Current occupational exposures/hazards: No Cognitive needs: No Hearing needs: No Vision needs: No Review of Systems Const Details: Constitutional : No Weight loss, No Fever, No Chills, No Fatigue, No Malaise ENT/Mouth : No sore throat, No Rhinorrhea Eyes: No Eye Pain, No Swelling, No Redness Cardiovascular : No Chest Pain, No SOB, No Dyspnea on Exertion, No Orthopnea, No Edema, No Palpitations Respiratory : No Cough, No Sputum, No Wheezing Gastrointestinal : No Nausea, No Vomiting, No Diarrhea, No Constipation, No abdominal Pain, No Hematochezia, No Melena Genitourinary : No Dysuria, No Urinary Frequency, No Hematuria, Musculoskeletal : No joint pain, No Myalgias, No Joint Swelling Skin : No Skin Lesions, + rash Neuro : No Weakness, No Numbness, No Dizziness, No Headache Psych : No Anxiety/Panic, No Depression All other systems reviewed and are negative All systems reviewed & are unremarkable except as noted in HPI and below Physical Exam Vital Signs: Last Vital Signs Temp 97.8 F 12/30/22 09:53 Pulse 83 12/30/22 09:53 BP 100/70 12/30/22 09:53 Pulse Ox 96 12/30/22 09:53 Oxygen Delivery Method Room Air 12/30/22 09:53 vss Appearance: Alert.? Oriented X3.? No acute distress.? Head: Normocephalic, atraumatic, no step-offs or deformities Eyes: Pupils equal, round and reactive to light.?.? CVS: Normal heart rate and rhythm.? Pulses normal.? Respiratory: No respiratory distress.? Breath sounds normal.? Abdomen: Soft and nontender.? Skin: Skin warm and dry.? Normal skin color.? Normal skin turgor.? + maculopapular rash to b/l buttocks and groin region. ([employer]) Extremities: No lower extremity edema.? No calf ttp. 5/5 strength to bilateral upper and lower extremities Back: No midline tenderness, no C-spine tenderness, full range of motion, no CVA tenderness bilaterally Neuro: Oriented X 3.? No motor deficit.? No sensory deficit. CN 2-12 intact Assessment & Plan Assessment & Plan (1) Rash: Code(s): R21 - Rash and other nonspecific skin eruption Plan Take your medications as prescribed. If you were prescribed antibiotics today, it is important that you take your medication to their entirety, do not skip any doses, do not finish them early. Follow-up with your primary care provider this week. Return to the emergency department with new or worsening symptoms. Such as fevers, chills, chest pain, shortness of breath, nausea, vomiting, dizziness, headache, vision changes, lethargy In case of emergency call 911 Medications: New prednisone 40 mg (2 x 20 mg) PO DAILY 10 tabs 0RF 5 days hydrocortisone 1% (Anti-Itch (hydrocortisone)) 1 appl topical TID PRN 120 mL 0RF skin irritation Coding Level of Care Code Est Pt Level 3 (45021) Diagnoses Rash R21
[2022-12-30 09:53] VITALS: BP 100/70; PULSE 83; TEMP 36.6; O2SAT 96
== END 2022-12-30 10:18 | disposition home or self-care (01) ==
PROVIDERS: PCP Internal Medicine; Visit Provider Physician Assistant
DX: R21 Rash and other nonspecific skin eruption (principal)
CPT/HCPCS: 99051; 99213

== ENCOUNTER 2024-06-03 16:32 | Outpatient (AMB) | payer OTHER, SELFPAY ==
[2024-06-03 16:35] VITALS: BP 102/68; PULSE 78; O2SAT 96; BMI 26.0
--- NOTE | 2024-06-03 16:35 | A.OFFPC_ITS ---
Vital Signs 06/03/24 16:35 Height 5 ft 9 in Weight 176 lb 6 oz BMI 26.0 BP 102/68 Blood Pressure Location Lt brachial Position Sitting Pulse 78 Pulse Source Pulse Oximeter Pulse Oximetry (%) 96 Oxygen Delivery Method Room Air Intake Visit Reasons: annual exam Intake Note: pt is here for a 3m f/u [employer] Required: No Accompanied by: Self / Same As Patient Allergies shellfish derived [SHELLFISH DERIVED] Allergy (Severe, Verified 06/03/24 17:06) ANAPHYLAXIS Medication List - Last Reconciled 06/03/24 by Zay Angeles MD No Known Home Meds Tobacco use date assessed: 06/03/24 Dental Screening Dental Screen Date: 06/03/24 Did you have a dental visit in the last 12 months?: Yes Did you have a dental problem in the last 6 months where you did not have access to dental care?: No Was dental information given to patient?: Patient has dentist HPI annual exam HPI Details Patient comes in today for his annual physical examination - he has not been back in over 2 years and was last seen on 05/22/2022 Patient states that he could not keep his follow-up appointments over the past couple of years because he lost his insurance for a while States that he has been experiencing increased pain over his lower back as well as in his right hip for months now He denies any recent injury or trauma to his lower back or right hip but recalls undergoing surgery back in 1996 when he suffered a fracture of his right hip/thigh that required insertion of a metal carrillo Is not sure if his current pain has anything to do with his past surgery Adds that is still experiencing recurrent chest pains, which have been going on for over a year now He recalls seeing Cardiology back in June 2023 for his recurrent chest pains and was going to be sent for a stress echocardiogram for further evaluation but he was lost to follow-up He relates (+) strong family history of heart disease in both parents and that his father from cardiac issues He denies any headaches or dizziness He has been experiencing recurrent chest pains but these do not appear to be exertional or associated with any activity or change in position He denies any increased shortness of breath No nausea/vomiting, no abdominal pain No change in bowel habits noted He denies any acute urinary symptoms Needs his EpiPen and Albuterol inhaler Rx refilled PFSH Medical History (Updated 06/09/24 @ 00:44 by Zay Angeles MD) Overweight (BMI 25.0-29.9) Vitamin D deficiency Hypothyroidism (acquired) History of drug abuse Depression Hepatitis B core antibody positive Hypertension History of hepatitis C Family history of diabetes mellitus History of liver disease Surgical History (Updated 06/03/24 @ 17:11 by Zay Angeles MD) History of right knee surgery (~1996) Family History Father Heart problem Liver problem Mother Liver cancer Social History Housing: House Alcohol intake: never Patient Tobacco Use Status: Never used Tobacco e-Cigarette/Vaping Use: Never Used Second Hand Smoke Exposure: No service: No Current occupational status: employed Current occupational exposures/hazards: No Cognitive needs: No Hearing needs: No Vision needs: No Questionnaire PHQ-9 Over the last 2 weeks, how often have you been bothered by any of the following problems? 1. Little interest or pleasure in doing things: not at all 2. Feeling down, depressed, or hopeless: not at all 3. Trouble falling or staying asleep, or sleeping too much: not at all 4. Feeling tired or having little energy: nearly every day 5. Poor appetite or overeating: not at all 6. Feeling bad about yourself - or that you are a failure or have let yourself or your family down: not at all 7. Trouble concentrating on things, such as reading the newspaper or watching television: not at all 8. Moving or speaking so slowly that other people could have noticed. Or the opposite - being so fidgety or restless that you have been moving around a lot more than usual: not at all 9. Thoughts that you would be better off or of hurting yourself in some way: not at all Total score: 3 Depression Screening Interpretation: Negative Depression Screening Done: Yes 11011 - PHQ-9 Billing: Yes Source: Developed by Drs. Devyn Dugan, Maia Cxo, Gurinder Arias and colleagues, with an educational carrillo from [employer]. Thrive Questionnaire Date Thrive assessed: 06/03/24 I am a: Patient What is your living situation today?: I have a steady place to live Within the past 12 months, did the food you bought not last and you didn't have the money to get more?: Never true Within the past 12 months, did you worry whether your food would run out before you got money to buy more?: Never true Do you have trouble paying for medicines?: No Do you have trouble getting transportation to medical appointments?: No Do you have trouble paying your heating and electricity bill?: I choose not to answer this question Do you have trouble taking care of your child, family member or friend?: I choose not to answer this question Do you have trouble with day-to-day activities such as bathing, preparing meals, shopping, managing finances, etc.?: I choose not to answer this question Are you currently unemployed and looking for a job?: I choose not to answer this question Are you interested in more education?: I choose not to answer this question Please select the resources that you would like help with: None Currently or been in a relationship where the following occur: No concerns reported THRIVE Score: 0 AUDIT C Alcohol Use Questionnaire (AUDIT-C) 1. How often do you have a drink containing alcohol?: Never 3. How often do you have six or more drinks on one occasion?: Never Total Score: 0 Score Reviewed/Action Taken: Yes JONH-7 AMB Questionnaire JONH-7 Date JONH - 7 assessed: 06/03/24 Feeling nervous, anxious, or on edge: 0 = Not at all Not being able to stop or control worryin = Not at all Worrying too much about different things: 0 = Not at all Trouble relaxin = Not at all Being so restless that it is hard to sit still: 0 = Not at all Becoming easily annoyed or irritable: 0 = Not at all Feeling afraid as if something awful might happen: 0 = Not at all Total JONH-7 score (0-4 normal; 5-9 mild; 10-14 moderate; 15-21 severe): 0 Source: Developed by Drs. Devyn Dugan, Maia Cox, Gurinder Arias and colleagues, with an educational carrillo from [employer]. Review of Systems Const Denies chills, Denies fatigue, Denies fever(s), Denies headache(s), Denies malaise and Denies weakness Eyes Denies blurry vision, Denies change in vision, Denies irritation and Denies itchy eyes ENT Denies dysphagia, Denies dizziness, Denies otalgia, Denies headache(s), Denies n roddy congestion, Denies neck pain, Denies odynophagia and Denies sore throat Card Reports chest pain (recurrent), Denies rapid heart rate, Denies irregular heart rhythm, Denies palpitations and Denies dyspnea Resp Denies chest congestion, Denies cough, Denies dyspnea and Denies wheezing GI Denies abdominal pain, Denies bloating, Denies constipation, Denies dysphagia, Denies heartburn, Denies diarrhea, Denies nausea, Denies odynophagia and Denies vomiting Denies hematuria, Denies difficulty urinating, Denies dysuria, Denies urinary frequency and Denies urinary urgency Musc Reports back pain (increased), Reports arthralgias (increased over the right hip, right thigh and right knee), Denies joint swelling, Denies muscle weakness and Denies neck pain Skin/Breast Denies change in pigmentation, Denies lesions, Denies rash and Denies unusual bruising Neuro Denies dizziness, Denies headache(s), Denies paresthesias and Denies weakness Endo Denies fatigue and Denies palpitations Aller/Immun Denies itchy eyes and Denies wheezing Physical exam (Primary Care) Vital Signs: Last Vital Signs Pulse 78 06/03/24 16:35 BP 102/68 06/03/24 16:35 Pulse Ox 96 06/03/24 16:35 Oxygen Delivery Method Room Air 06/03/24 16:35 BMI result Body Mass Index 26.0 Tobacco/Smoking Status: Tobacco use Status Tobacco use date assessed 06/03/24 06/03/24 16:37 Patient Tobacco Use Status Never used Tobacco 06/03/24 16:37 e-Cigarette/Vaping Use Never Used 06/03/24 16:37 PHQ-9: PHQ-9 Score PHQ-9: Total score 3 06/03/24 17:12 Depression Screening Interpretation: Negative Thrive Assessment: Date of Thrive Assessment Date Thrive assessed 06/03/24 06/03/24 16:37 Currently or been in a relationship where the following occur: No concerns reported Const General: no acute distress, alert and awake Orientation/consciousness: patient oriented x3 HENMT Head: Yes normocephalic and Yes atraumatic Ears: external ears normal, TM's normal bilaterally and EAC's normal General nose exam: No nasal discharge present Face and sinus: Yes normal facial exam and Yes sinuses nontender Teeth and gingiva: dentition normal Throat: Yes posterior oropharynx normal and Yes tonsils normal (no TP congestion) Eyes Eyelids: Yes eyelids normal Conjunctivae: conjunctivae normal Pupils: Equal, round and reactive pupils present EOM: EOMs intact bilaterally Neck Neck: Yes no lymphadenopathy and Yes supple Thyroid: Thyroid normal Resp Auscultation: clear to auscultation bilaterally, no rales and no wheezes Cardio Rate: regular rate Rhythm: regular rhythm Heart sounds: no murmurs GI Palpation (GI): Soft to palpation, nontender and No hepatosplenomegaly present Auscultation: normal bowel sounds General: Yes no CVA tenderness Back/Spine/Pelvis Back: no CVA tenderness Thoracic/Lumbar Spine: lumbar spinal tenderness Skin Lesions: no lesions Rashes: no rashes Neuro General: patient oriented x3, moves all extremities, no focal motor deficits and CN's II-XI intact bilaterally Cranial nerves: Yes Equal, round and reactive pupils present Cognition (Neuro): normal cognition Gait exam (Neuro): Normal gait present Extrem General: Yes no clubbing, cyanosis or edema Right lower extremity: hip/thigh Details: tenderness Location: of the hip Location: laterally, of the proximal upper leg Location: anterolaterally and of the mid upper leg Location: anterolaterally and knee Details: tenderness Location: of the pre-patellar area; no swelling Coding Level of Care Code Est Pt Prev Care 40-64y(05029) Diagnoses Annual physical exam Z00.00 Recurrent chest pain R07.9 Hypothyroidism (acquired) E03.9 Mild intermittent asthma without complication J45.20 Asthma severity: mild Asthma persistence: intermittent Asthma complication type: uncomplicated Vitamin D deficiency E55.9 Hx of fracture of femur Z87.81 Midline low back pain without sciatica, unspecified chronicity M54.50 Chronicity: unspecified Back pain laterality: midline Sciatica presence: without sciatica History of hepatitis C Z86.19 Overweight (BMI 25.0-29.9) E66.3 Colon cancer screening Z12.11 Additional Codes PHQ-9 - 35317 - PHQ-9 Billing: Yes ([id number]) Assessment & Plan Assessment & Plan (1) Annual physical exam: Code(s): Z00.00 - Encounter for general adult medical examination without abnormal findings Category: Medical Plan: Check labs He is due for his screening colonoscopy and has never had a colonoscopy done in the past (2) Recurrent chest pain: Code(s): R07.9 - Chest pain, unspecified Category: Medical Plan: Patient reports (+) and history of cardiac disease in both parents and relates that his father of cardiac issues He was seen by cardiology back in June 2023 and was being scheduled for a stress echocardiogram for further evaluation but he was lost to follow-up due to loss of his health insurance coverage Will now refer him again to cardiology for further evaluation and management of his recurrent chest pains (3) Hypothyroidism (acquired): Code(s): E03.9 - Hypothyroidism, unspecified Category: Medical Plan: Patient was taking Levothyroxine in the past but stopped taking this over a year ago Will check his TFTs MATHEW and will restart him back on thyroid hormone replacement therapy if necessary (4) Asthma: Code(s): J45.909 - Unspecified asthma, uncomplicated Category: Medical Qualifiers: Asthma severity: mild Asthma persistence: intermittent Asthma complication type: uncomplicated Qualified Code(s): J45.20 - Mild intermittent asthma, uncomplicated Plan: Appears controlled Continue Ventolin HFA 1 to 2 inhalations vry 6 hours PRN - Rx refilled (5) Vitamin D deficiency: Code(s): E55.9 - Vitamin D deficiency, unspecified Category: Medical Plan: Patient has not been taking any vitamin-D supplements in a while now Will recheck his vitamin-D level MATHEW for follow-up (6) Hx of fracture of femur: Code(s): Z87.81 - Personal history of (healed) traumatic fracture Category: Medical Plan: Will send patient for x-rays of the right hip, right thigh and right knee for further evaluation (7) Low back pain: Code(s): M54.50 - Low back pain, unspecified Category: Medical Qualifiers: Chronicity: unspecified Back pain laterality: midline Sciatica presence: without sciatica Qualified Code(s): M54.50 - Low back pain, unspecified Plan: Reinforced activity and weightlifting restrictions to avoid aggravating his low back pain Will send him for x-rays of the lumbosacral spine for further evaluation (8) History of hepatitis C: Comment: S/P Tx with [facility] by Dr. Shai castaneda in 2015 - 2016 Code(s): Z86.19 - Personal history of other infectious and parasitic diseases Category: Medical Plan: Will recheck his hepatitis-C viral load for follow-up (9) Overweight (BMI 25.0-29.9): Code(s): E66.3 - Overweight Category: Medical Plan: Reinforce diet/exercise as tolerated/lose weight (10) Colon cancer screening: Code(s): Z12.11 - Encounter for screening for malignant neoplasm of colon Category: Medical Plan: Will refer patient to Gastroenterology for his screening colonoscopy Plan Follow-up in 3 months Orders: Orders XR knee RT 4V 06/06/24 M25.561 - Pain in right knee, Z87.81 - Personal history of (healed) traumatic fracture XR femur RT 2V 06/06/24 Z87.81 - Personal history of (healed) traumatic fracture XR lumbar spine 2-3V 06/06/24 M54.50 - Low back pain, unspecified Complete Blood Count Auto Diff 06/07/24 D64.9 - Anemia, unspecified, M54.50 - Low back pain, unspecified Lipid Panel 06/07/24 E78.00 - Pure hypercholesterolemia, unspecified, M54.50 - Low back pain, unspecified Hemoglobin A1c 06/07/24 M54.50 - Low back pain, unspecified, R73.9 - Hyperglycemia, unspecified C Reactive Protein 06/07/24 M54.50 - Low back pain, unspecified Erythrocyte Sedimentation Rate 06/07/24 M54.50 - Low back pain, unspecified, M79.7 - Fibromyalgia Hepatitis C Viral Load Today Z86.19 - Personal history of other infectious and parasitic diseases XR hip RT min 2V 06/06/24 M25.551 - Pain in right hip, Z87.81 - Personal history of (healed) traumatic fracture Comprehensive [place]. Panel Fast 06/07/24 E78.00 - Pure hypercholesterolemia, unspecified, M54.50 - Low back pain, unspecified Free T4 (Free Thyroxine) 06/07/24 E03.9 - Hypothyroidism, unspecified, M54.50 - Low back pain, unspecified Vitamin D 25-OH Total 06/07/24 E55.9 - Vitamin D deficiency, unspecified, M54.50 - Low back pain, unspecified UA CC w/rflx Micro + Cult 06/07/24 M54.50 - Low back pain, unspecified, R30.0 - Dysuria CK, Total+Isoenzymes, Serum 06/07/24 M54.50 - Low back pain, unspecified Referrals Gastroenterology Referral Z12.11 - Encounter for screening for malignant neoplasm of colon Cardiology Referral R07.9 - Chest pain, unspecified Medications: Changed From ProAir HFA 90 mcg/actuation (albuterol sulfate) 2 puffs inhalation Q6H PRN 8.5 grams 2RF shortness of breath or wheezing NS To Ventolin HFA 90 mcg/actuation (albuterol sulfate) 2 puffs inhalation Q6-8H PRN 18 grams 3RF shortness of breath or wheezing NS Refilled epinephrine (EpiPen) 0.3 mg (0.3 mL) IM Q4H PRN 2 ea 0RF anaphylaxis
== END 2024-06-03 17:25 | disposition home or self-care (01) ==
PROVIDERS: PCP Internal Medicine; Visit Provider Internal Medicine
DX: Z00.00 Encounter for general adult medical examination without abnormal findings (principal); R07.9 Chest pain, unspecified; E03.9 Hypothyroidism, unspecified; J45.20 Mild intermittent asthma, uncomplicated; E55.9 Vitamin D deficiency, unspecified; Z87.81 Personal history of (healed) traumatic fracture; M54.50 Low back pain, unspecified; Z86.19 Personal history of other infectious and parasitic diseases; E66.3 Overweight; Z12.11 Encounter for screening for malignant neoplasm of colon

== ENCOUNTER → 2024-06-03 16:32 | Outpatient (BNVA) | payer OTHER, SELFPAY | PROVIDERS: PCP Internal Medicine; Visit Provider Internal Medicine | DX: Z00.00 Encounter for general adult medical examination without abnormal findings (principal); R07.9 Chest pain, unspecified; E03.9 Hypothyroidism, unspecified; J45.20 Mild intermittent asthma, uncomplicated; E55.9 Vitamin D deficiency, unspecified; M54.50 Low back pain, unspecified; E66.3 Overweight; Z86.19 Personal history of other infectious and parasitic diseases; Z87.81 Personal history of (healed) traumatic fracture | CPT/HCPCS: 96127; 99396 ==

== ENCOUNTER 2024-06-06 13:14 | Outpatient (REF) | payer OTHER, SELFPAY ==
--- NOTE | ~2024-06-06 | XR_ITS ---
EXAMINATION: XR FEMUR 2 VIEWS RIGHT, XR KNEE 4 OR MORE VIEWS RIGHT HISTORY: Z87.81 - Personal history of (healed) traumatic fracture COMPARISON: There are no prior studies available for comparison. FINDINGS: Four views of the right knee and AP and lateral views of the right femur are submitted. Osseous mineralization is normal. There is an old healed fracture of the proximal femoral diaphysis as well as additional old healed fractures involving the proximal tibial metaphysis and the proximal fibular diaphysis. No acute fracture or dislocation is seen. The knee joint spaces are preserved. The soft tissues are unremarkable. XR/XR femur RT 2V IMPRESSION: Old healed fracture deformities of the proximal femur, proximal tibia, and proximal fibula. No evidence of acute fracture. Electronically signed by: Devyn Villeda MD 06/06/2024 01:45 PM [facility]
--- NOTE | ~2024-06-06 | XR_ITS ---
EXAMINATION: XR FEMUR 2 VIEWS RIGHT, XR KNEE 4 OR MORE VIEWS RIGHT HISTORY: Z87.81 - Personal history of (healed) traumatic fracture COMPARISON: There are no prior studies available for comparison. FINDINGS: Four views of the right knee and AP and lateral views of the right femur are submitted. Osseous mineralization is normal. There is an old healed fracture of the proximal femoral diaphysis as well as additional old healed fractures involving the proximal tibial metaphysis and the proximal fibular diaphysis. No acute fracture or dislocation is seen. The knee joint spaces are preserved. The soft tissues are unremarkable. XR/XR knee RT 4V IMPRESSION: Old healed fracture deformities of the proximal femur, proximal tibia, and proximal fibula. No evidence of acute fracture. Electronically signed by: Devyn Villeda MD 06/06/2024 01:45 PM [facility]
--- NOTE | ~2024-06-06 | XR_ITS ---
EXAMINATION: XR LUMBOSACRAL SPINE CLINICAL INFORMATION: M54.50 - Low back pain, unspecified COMPARISON: None available. TECHNIQUE: Three views of the lumbosacral spine. FINDINGS: No acute cortical disruption or malalignment. No lytic or blastic lesions. XR/XR lumbar spine 2-3V IMPRESSION: Normal x-ray. Electronically signed by: Nando Flood MD 06/10/2024 12:03 PM [facility]
--- NOTE | ~2024-06-06 | XR_ITS ---
EXAMINATION: XR HIP 2 OR MORE VIEWS RIGHT HISTORY: M25.551 - Pain in right hip COMPARISON: Correlation is made with a CT of the pelvis dated 06/15/2017. FINDINGS: Two views of the right hip are submitted. Osseous mineralization is normal. There is an old fracture deformity of the proximal femoral diaphysis. There is also deformity of the lateral aspect of the femoral head, unchanged from the prior CT. There is no acute fracture or dislocation. There is mild joint space narrowing. The soft tissues are unremarkable. XR/XR hip RT min 2V IMPRESSION: Old fracture deformity of the proximal femoral diaphysis and femoral head. No acute fracture. Mild joint space narrowing. Electronically signed by: Devyn Villeda MD 06/06/2024 01:43 PM [facility]
== END 2024-06-06 13:15 | disposition home or self-care (01) ==
LOC: HO.XRAY 13:14
PROVIDERS: PCP Internal Medicine; Visit Provider Internal Medicine
DX: Z87.81 Personal history of (healed) traumatic fracture (principal); M25.561 Pain in right knee; M54.50 Low back pain, unspecified; M25.551 Pain in right hip
CPT/HCPCS: 72100; 73502; 73552; 73564

== ENCOUNTER → 2024-06-06 13:18 | Outpatient (BNV) | payer OTHER, SELFPAY | PROVIDERS: PCP Internal Medicine; Visit Provider Radiology Diagnostic Radiology | DX: M25.561 Pain in right knee (principal); Z87.81 Personal history of (healed) traumatic fracture; M25.551 Pain in right hip | CPT/HCPCS: 73502; 73552; 73564 ==

== ENCOUNTER 2024-06-07 07:08 | Outpatient (REF) | payer OTHER, SELFPAY ==
[2024-06-07 07:30] LABS: MANUAL DIFF FLAG NO
[2024-06-07 08:09] LABS: Basophils Absolute Auto 0.1 X10*3/uL (0.0-0.2); Basophils Percent Auto 1.7 % (0-2); Eosinophils Absolute Auto 0.4 X10*3/uL (0.0-0.4); Hematocrit 47.3 % (42.0-52.0); Hemoglobin 17.1 g/dl (14.0-18.0); Imm Gran Abs Auto 0.02 X10*3/uL (0.00-0.03); Imm Gran Pct Auto 0.3 % (0.0-0.4); Lymphocytes Absolute Auto 2.1 X10*3/uL (1.2-4.9); Lymphocytes Percent Auto 31.6 % (20-40); Mean Corpuscular HGB Conc 36.2 g/dl (31.0-36.0); Mean Corpuscular Hemoglobin 31.9 pg (27.0-33.0); Mean Corpuscular Volume 88.2 fL (80.0-98.0); Mean Platelet Volume 9.7 fL (9.4-12.4); Monocytes Absolute Auto 0.7 X10*3/uL (0.1-1.2); Monocytes Percent Auto 10.9 % (2-11); Neutrophils Absolute Auto 3.2 x10*3/uL (2.0-8.3); Neutrophils Percent Auto 49.5 % (45-73); Platelet Count 274 X10*3/uL (160-400); Red Blood Count 5.36 X10*6/uL (4.60-5.80); Red Cell Distribution Width 12.1 % (11.0-16.0); White Blood Count 6.5 X10*3/uL (4.8-10.8)
[2024-06-07 08:18] LABS: Estimated Average Glucose 100 mg/dL; Hemoglobin A1C 139.2794 umol/L; Hemoglobin A1c % 5.1 % (<6.0); Total Hemoglobin (HGBA1C) 4271.8796 umol/L
[2024-06-07 08:24] LABS: Appearance Urine Clear; Color Urine Yellow; Glucose Urine UA Negative (Negative); Leukocyte Esterase Urine Negative (Negative); Nitrite Urine Negative (Negative); PH 5.5 (5.0-9.0); Specific Gravity - Urine 1.025 (1.005-1.025); Urine Blood Negative (Negative); Urine Ketones Negative (Negative); Urine Protein Negative (Neg-Trace)
[2024-06-07 08:45] LABS: Alanine Aminotransferase 39 U/L (0-40); Albumin Level 4.4 g/dL (3.5-5.0); Alkaline Phosphatase 77 U/L (39-117); Anion Gap 13 (12-20); Aspartate Amino Transferase 24 U/L (5-37); Bilirubin Total 0.8 mg/dL (0.0-1.0); Blood Urea Nitrogen 19 mg/dL (9-16); C Reactive Protein < 0.10 mg/dL (< or = 0.50); Calcium 9.2 mg/dL (8.4-10.2); Carbon Dioxide 26 mmol/L (22-29); Chloride 108 mmol/L (96-108); Cholesterol 144 mg/dL (<200); Estimated Glomerular Filt Rate > 60; Glucose Fasting 94 mg/dL (60-99); HDL Cholesterol 36 mg/dL (>40); LDL Cholesterol Calculated 97 mg/dL (<100); Potassium 4.4 mmol/L (3.3-5.1); Sodium 143 mmol/L (135-145); Total Protein 7.6 g/dL (6.5-8.0); Triglycerides 56 mg/dL (<150)
[2024-06-07 08:52] LABS: Free T4 (Free Thyroxine) 0.62 ng/dL (0.71-1.85); Vitamin D 25-OH Total 27.8 ng/mL (>30)
[2024-06-07 09:07] LABS: Erythrocyte Sedimentation Rate 2 MM/HR (0-15)
[2024-06-12 20:54] LABS: CK-BB None Detected (None Detected); CK-MB 0 % (<5); CK-MM 100 % (95-100); Creatine Kinase,Total,Serum 97 U/L (26-366)
== END 2024-06-07 07:09 | disposition home or self-care (01) ==
LOC: HO.LAB 07:08
PROVIDERS: PCP Internal Medicine; Visit Provider Internal Medicine
DX: M54.50 Low back pain, unspecified (principal); E78.00 Pure hypercholesterolemia, unspecified; R73.9 Hyperglycemia, unspecified; E03.9 Hypothyroidism, unspecified; D64.9 Anemia, unspecified; M79.7 Fibromyalgia; E55.9 Vitamin D deficiency, unspecified; R30.0 Dysuria
CPT/HCPCS: 36415; 80053; 80061; 81003; 82306; 82552; 83036; 84439; 85025; 85652; 86140

== ENCOUNTER 2024-06-16 16:06 | Outpatient (REF) | payer OTHER, SELFPAY ==
[2024-06-17 13:38] LABS: Influenza A PCR POSITIVE (Negative); Influenza B PCR NEGATIVE (Negative); Resp Syncy Virus RNA Qual PCR NEGATIVE (Negative); SARS COV2 PCR INHOUSE NEGATIVE (Negative)
== END 2024-06-16 16:07 | disposition home or self-care (01) ==
LOC: HO.LAB 16:06
PROVIDERS: PCP Internal Medicine; Visit Provider Physician Assistant
DX: J06.9 Acute upper respiratory infection, unspecified (principal); R09.89 Other specified symptoms and signs involving the circulatory and respiratory systems
CPT/HCPCS: 0241U; 99212

== ENCOUNTER 2024-06-16 16:06 | Outpatient (AMB) | payer OTHER, SELFPAY ==
[2024-06-16 16:14] VITALS: BP 110/68; PULSE 81; TEMP 36.8; O2SAT 98; BMI 26.0
--- NOTE | 2024-06-16 16:14 | MHC.OFFWIV ---
Intake Vital Signs 06/16/24 16:14 Height 5 ft 9 in Weight 176 lb BMI 26.0 BP 110/68 Blood Pressure Location Lt brachial Position Sitting Pulse 81 Pulse Source Pulse Oximeter Temp 98.2 F Temp Source Oral Pulse Oximetry (%) 98 Intake Visit Reasons: EP asthma, SOB Patient Tobacco Use Status: Never used Tobacco Allergies shellfish derived [SHELLFISH DERIVED] Allergy (Severe, Verified 06/16/24 16:15) ANAPHYLAXIS Do you need a note to return to daycare/school/sports/work: Yes HPI HPI Comments History of Present Illness Details History The patient is a 49-year-old male presenting with shortness of breath and cough. - He experienced onset of shortness of breath this morning. - The patient has a documented history of asthma and usually manages it with inhaler use. - An increased frequency of inhaler use was noted today. - Associated symptoms include coughing and wheezing, absence of fever, and denial of other systemic symptoms. - No flu vaccination was received this year - The patient expressed feeling generally tired. Physical Exam General: Cooperative, healthy appearing, comfortable and no acute distress Orientation/consciousness: Patient oriented x3 Limitations: No limitations Head: Normal to inspection Ears: Hearing grossly normal bilaterally, external ears normal and TM's normal bilaterally Nose: Normal external nose present, Normal nares present and No nasal discharge present Face and sinus: Normal facial exam and Yes sinuses nontender Mouth: Normal oral and palatal mucosa present and moist mucous membranes Throat: Yes tonsils normal, Yes uvula midline. Posterior oropharynx erythema Eyes: Appearance normal, both eyes and all related structures Neck: Normal visual inspection Respiratory: Clear to auscultation bilaterally. Normal respiratory effort, able to speak in complete sentences, Actively coughing, no respiratory distress, not tachypneic, no tripod positioning and no use of accessory muscles Cardiovascular: Regular rate and rhythm. Normal S1 and S2 Skin: No rashes or lesions noted Neuro: Patient oriented x3 Extremities: Normal to inspection and Yes no clubbing, cyanosis or edema [facility] Medical History (Updated 06/16/24 @ 16:38 by Candace Bonner PA-C) Overweight (BMI 25.0-29.9) Vitamin D deficiency Hypothyroidism (acquired) History of drug abuse Depression Hepatitis B core antibody positive Hypertension History of hepatitis C Family history of diabetes mellitus History of liver disease Surgical History (Updated 06/03/24 @ 17:11 by Zay Angeles MD) History of right knee surgery (~1996) Family History Father Heart problem Liver problem Mother Liver cancer Social History Housing: House Alcohol intake: never Patient Tobacco Use Status: Never used Tobacco e-Cigarette/Vaping Use: Never Used Second Hand Smoke Exposure: No service: No Current occupational status: employed Current occupational exposures/hazards: No Cognitive needs: No Hearing needs: No Vision needs: No Review of Systems Const All systems reviewed & are unremarkable except as noted in HPI and below Physical Exam Vital Signs: Last Vital Signs Temp 98.2 F 06/16/24 16:14 Pulse 81 06/16/24 16:14 BP 110/68 06/16/24 16:14 Pulse Ox 98 06/16/24 16:14 BMI result Body Mass Index 26.0 Assessment & Plan Assessment & Plan (1) URI, acute: Code(s): J06.9 - Acute upper respiratory infection, unspecified Plan: To address the acute respiratory symptoms in the context of asthma, a short course of systemic steroids is prescribed with a six-day taper. Specific dosing instructions provided are to concentrate doses in the morning to prevent sleep disruption. Codi D is recommended along with other [id number]-[id number] options such as Benadryl to manage allergic symptoms. The use of the inhaler is advised every four to six hours. Additionally, medications to manage nocturnal cough may be prescribed. Nasal swabs for flu, COVID-19, and RSV have been done, with follow-up on results to occur the following day. Patient was informed and verbally consented to the use of an ambient scribe for clinic note documentation during this visit Orders: Orders SARS-CoV2/FLU/RSV Today R09.89 - Other specified symptoms and signs involving the circulatory and respiratory systems Medications: New methylprednisolone PO PER PKG DIR for 6 days 21 ea 0RF benzonatate 200 mg PO .QHS PRN 10 caps 0RF cough Coding Level of Care Code Est Pt Level 3 (58448) Diagnoses URI, acute J06.9
== END 2024-06-16 16:35 | disposition home or self-care (01) ==
PROVIDERS: PCP Internal Medicine; Visit Provider Physician Assistant
DX: J06.9 Acute upper respiratory infection, unspecified (principal)

== ENCOUNTER 2024-06-18 16:01 | Outpatient (AMB) | payer OTHER, SELFPAY ==
[2024-06-18 16:14] VITALS: BP 118/84; PULSE 98; RESP 15; TEMP 36.8; O2SAT 98; BMI 25.2
--- NOTE | 2024-06-18 16:14 | MHC.OFFWIV ---
Intake Vital Signs 06/18/24 16:14 Height 5 ft 9 in Weight 171 lb BMI 25.2 BP 118/84 Blood Pressure Location Rt brachial Position Sitting Respiration 15 Pulse 98 Pulse Source Pulse Oximeter Temp 98.2 F Temp Source Oral Pulse Oximetry (%) 98 Oxygen Delivery Method Room Air Intake Visit Reasons: EP asthma, flu symptoms Intake Note: Pt is here today c/o asthma, and flu like sx's still having asthma sx's and is scheduled back to work tomorrow Patient Tobacco Use Status: Never used Tobacco Allergies shellfish derived [SHELLFISH DERIVED] Allergy (Severe, Verified 06/18/24 16:15) ANAPHYLAXIS HPI HPI Comments History of Present Illness Details History - The patient is a 49-year-old male with a past med hx of asthma c/o a persistent cough following a positive influenza A test 2d ago. - He has been experiencing coughing which is exacerbated by physical activity at work. - Steroid medication prescribed previously reportedly has improved the patient's symptoms but not resolved them and he is expected to go back to work tomorrow, although medication taken before bedtime has somewhat alleviated the cough. - The patient is utilizing an inhaler as needed, reporting little improvement in symptoms. 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 Posterior oropharynx erythema Eyes: Appearance normal, both eyes and all related structures Neck: Normal visual inspection Respiratory: Clear to auscultation bilaterally. Normal respiratory effort, able to speak in complete sentences, Actively coughing, no respiratory distress, not tachypneic, no tripod positioning and no use of accessory muscles Cardiovascular: Regular rate and rhythm. Normal S1 and S2 Skin: No rashes or lesions noted Neuro: Patient oriented x3 Extremities: Normal to inspection and Yes no clubbing, cyanosis or edema [facility] Medical History (Updated 06/18/24 @ 16:30 by Candace Bonner PA-C) Overweight (BMI 25.0-29.9) Vitamin D deficiency Hypothyroidism (acquired) History of drug abuse Depression Hepatitis B core antibody positive Hypertension History of hepatitis C Family history of diabetes mellitus History of liver disease Surgical History (Updated 06/03/24 @ 17:11 by Zay Angeles MD) History of right knee surgery (~1996) Family History Father Heart problem Liver problem Mother Liver cancer Social History Housing: House Alcohol intake: never Patient Tobacco Use Status: Never used Tobacco e-Cigarette/Vaping Use: Never Used Second Hand Smoke Exposure: No service: No Current occupational status: employed Current occupational exposures/hazards: No Cognitive needs: No Hearing needs: No Vision needs: No Review of Systems Const All systems reviewed & are unremarkable except as noted in HPI and below Physical Exam Vital Signs: Last Vital Signs Temp 98.2 F 06/18/24 16:14 Pulse 98 06/18/24 16:14 Resp 15 06/18/24 16:14 BP 118/84 06/18/24 16:14 Pulse Ox 98 06/18/24 16:14 Oxygen Delivery Method Room Air 06/18/24 16:14 BMI result Body Mass Index 25.2 Assessment & Plan Assessment & Plan (1) Influenza A: Code(s): J10.1 - Influenza due to other identified influenza virus with other respiratory manifestations Plan: The patient will continue with the current steroid and medication regimen, including using the inhaler as required. He is advised to refrain from work until Sunday to prevent symptom aggravation. Vital signs were stable, and his lung sounds were clear upon examination. The emphasis is on medication adherence and careful symptom management. Should symptom severity increase or fail to settle, the patient is advised to seek further medical evaluation. wrote work note to extend his absence for another 2 days, to support him being out 06/16-06/23. Patient was informed and verbally consented to the use of an ambient scribe for clinic note documentation during this visit Coding Level of Care Code Est Pt Level 3 (45481) Diagnoses Influenza A J10.1
== END 2024-06-18 16:47 | disposition home or self-care (01) ==
PROVIDERS: PCP Internal Medicine; Visit Provider Physician Assistant
DX: J10.1 Influenza due to other identified influenza virus with other respiratory manifestations (principal)

== ENCOUNTER → 2024-06-18 16:01 | Outpatient (BNVA) | payer OTHER, SELFPAY | PROVIDERS: PCP Internal Medicine | DX: J10.1 Influenza due to other identified influenza virus with other respiratory manifestations (principal) | CPT/HCPCS: 99212 ==

== ENCOUNTER 2025-01-07 08:20 | Emergency (ER) | payer SELFPAY ==
--- NOTE | ~2025-01-07 | XR_ITS ---
EXAMINATION: XR CHEST CLINICAL INFORMATION: sob/asthma COMPARISON: 07/25/2021. TECHNIQUE: Frontal view of the chest was obtained. FINDINGS: The cardiac, hilar, and mediastinal contours are normal. The lungs are clear bilaterally. No pneumothorax or effusion. No focal osseous or soft tissue abnormality. XR/XR chest 1V IMPRESSION: No active pulmonary disease. Electronically signed by: Elías De La Vega MD 01/07/2025 08:45 AM EDT
[2025-01-07 08:21] VITALS: BP 135/86; PULSE 77; RESP 16; TEMP 36.2; O2SAT 98; BMI 24.4
--- NOTE | 2025-01-07 08:47 | ECG_ITS ---
Test Reason : SOB Blood Pressure : */* mmHG Vent. Rate : 78 BPM Atrial Rate : 78 BPM P-R Int : 146 ms QRS Dur : 84 ms QT Int : 382 ms P-R-T Axes : 30 43 29 degrees QTcB Int : 435 ms Normal sinus rhythm Normal ECG When compared with ECG of 25-Jul-2021 05:41, No significant change was found Referred By: Karuna Cavanaugh Electronically Signed By: DENIS HORAN
--- NOTE | 2025-01-07 08:49 | ED_ITS ---
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 Patient states he began to feel short of breath while at work (works for [employer]). Patient states when he got home he developed some midsternal chest ?pressure? with a cough chest pain is intermittent and worse when coughing. Patient states he used albuterol pump this morning and felt mild relief of his symptoms. MD complaint: SOB, cough Related Data Previous Rx's ?Medication ?Instructions ?Recorded Ventolin HFA 90 mcg/actuation 2 puff inhalation Q6-8H PRN 06/03/24 aerosol inhaler (albuterol sulfate) shortness of breat h or wheezing #18 grams epinephrine 0.3 mg/0.3 mL 0.3 mg (0.3 mL) IM Q4H PRN 0 06/03/24 injection, auto-injector (EpiPen) anaphylaxis #2 ea benzonatate 200 mg capsule 200 mg PO .QHS PRN cough #1 0 caps 06/16/24 methylprednisolone 4 mg tablets in See Rx Instructions PO PER PKG DIR 06/16/24 a dose pack #21 ea Allergies Allergy/AdvReac Type Severity Reaction Status Date / Time shellfish derived (SHELLFISH Allergy Severe ANAPHYLAXIS Verified 01/07/25 08:23 DERIVED) Review of Systems 2 Review of Systems: CONST: Negative for fever, body aches and chills. HENT: Negative for neck pain/stiffness, headache, congestion, sore throat, swelling. EYES: Negative for discharge/pain or vision changes. RESP: Negative hemoptysis. POS SOB, cough CV: Negative chest pain, difficulty breathing, palpitations. POS chest pressure ABD: Negative pain, nausea, vomiting. : Negative increase frequency, dysuria, blood in urine or stool. MUSC: Negative for muscle aches, edema. SKIN: Negative rash, lesions/sores. NEURO: Negative headache, dizziness, weakness. Yes all other systems are reviewed and are negative [facility] Past Medical History Attestation statement: The following information was validated with the patient. Source: old records reviewed and nursing notes reviewed Medical History (Updated 01/07/25 @ 09:08 by Karuna Cavanaugh PA-C) Overweight (BMI 25.0-29.9) Vitamin D deficiency Hypothyroidism (acquired) History of drug abuse Depression Hepatitis B core antibody positive Hypertension History of hepatitis C Family history of diabetes mellitus History of liver disease Surgical History (Updated 06/03/24 @ 17:11 by Zay Angeles MD) History of right knee surgery (~1996) Family History Family History Father Heart problem Liver problem Mother Liver cancer Social History Social History Housing: House Alcohol intake: never Patient Tobacco Use Status: Never used Tobacco Smoked in Last 30 Days: No e-Cigarette/Vaping Use: Never Used Second Hand Smoke Exposure: No Use of substances other than those prescribed or required for medical reasons: No Advance Directives: No Advance Directives Information Provided: No service: No Current occupational status: employed Current occupational exposures/hazards: No Cognitive needs: No Hearing needs: No Vision needs: No Physical Exam ED Vital Signs: Vital Signs - 24 hr 01/07/25 08:21 01/07/25 08:40 01/07/25 09:16 Temperature 97.1 F Pulse Rate 77 77 Respiratory Rate 16 22 H Blood Pressure 135/86 Pulse Oximetry 98 Oxygen Delivery Method Room Air Room Air BMI result Body Mass Index 24.4 GENERAL APPEARANCE: ?AxOx4, generally well-appearing, no acute distress. HEENT: ?NC, AT. MMM. EOMI, clear conjunctiva, oropharynx clear. NECK: ?Supple without lymphadenopathy.? No stiffness or restricted ROM. HEART:? Normal rate and regular rhythm, normal S1/S2, no m/r/g LUNGS:? CTAB, moving air well. No crackles or wheezes are heard. ABDOMEN: ?Soft, nontender, nondistended with good bowel sounds heard. BACK: No CVAT, no obvious deformity. EXTREMITIES: ?Without cyanosis, clubbing or edema. NEUROLOGICAL: ?Grossly nonfocal. Alert and oriented, moving all 4 extremities. Observed to ambulate with normal gait. Skin: ?Warm and dry without any rash. Medications Administered Discontinued Medications Generic Name Dose Route Start Last Admin Trade Name Mckinley PRN Reason Stop Dose Admin Albuterol Sulfate 2.5 mg/ 5 mg 01/07/25 09:13 01/07/25 09:15 Albuterol Sulfate 2.5 mg INHALE 01/07/25 09:14 5 mg ONCE ONE Administration Methylprednisolone Sodium Succinate 125 mg 01/07/25 08:46 01/07/25 09:12 Methylprednisolone Sod Succ 125 Mg/2 Ml Vial IVPUSH 01/07/25 08:47 125 mg ONCE ONE Administration Medical Decision Making Medical Decision Making MDM Narrative: 49-year-old male with medical history of asthma, hypothyroidism, hepatitis-C, HTN, depression presents to the ED due to SOB, midsternal chest pressure and cough that began yesterday and worsened when he got home from work (works for [employer]). Used albuterol inhaler this morning with mild relief of symptoms. VS on initial observation-BP 135/86, pulse rate of 77, respiratory rate of 16, afebrile with oral temp of 97.1?, O2 saturation 98% on room air. Physical exam reveals healthy-appearing patient in no acute distress, nontoxic appearing, speaking in full clear sentences. Lungs clear to auscultation bilaterally without expiratory wheeze, no increased work of breathing, no pursed lip breathing, no accessory muscle use, cardiac exam reveals normal rate and rhythm without murmurs/rubs/gallops Plan: Labs, EKG, CXR, bronch protocol Course EKG reveals normal sinus rhythm, without ST-elevation/depression, T-wave abnormality, lengthened QT, troponins x2 undetectable at < 2.7 Labs without leukocytosis/leukopenia, H&H stable, no electrolyte abnormality. CXR negative for acute cardiopulmonary process, no infiltrates or consolidations observed. Patient with dry cough that started last night, afebrile do not think he needs abx therapy at this time. Patient recieved 125mg IV solumedrol, 5mg ventolin. Patient states his breathing feels improved at this time and feels comfortable to go home for self care. Patient has rescue inhalers at home for management. I counseled patient on strict return procautions and to follow up with his PCP. Patient is understanding and is in agreement with the plan. Differential Diagnosis Differential Diagnoses: The differential diagnosis associated with the presentation includes Asthma exacerbation COVID Flu Viral illness Admission/Observation Consideration of admission/observation: Escalation of care including admission/observation considered Lab Data MDM Lab Attestation statement: I reviewed the patient's lab results. 01/07/25 09:11 01/07/25 09:11 Labs: Lab Results 01/07/25 01/07/25 01/07/25 Range/Units 08:31 09:11 10:21 WBC 8.4 (4.8-10.8) X10*3/uL RBC 5.42 (4.60-5.80) X10*6/uL Hgb 17.1 (14.0-18.0) g/dl Hct 45.8 (42.0-52.0) % MCV 84.5 (80.0-98.0) fL MCH 31.5 (27.0-33.0) pg MCHC 37.3 H (31.0-36.0) g/dl RDW 12.1 (11.0-16.0) % Plt Count 260 (160-400) X10*3/uL MPV 9.7 (9.4-12.4) fL Immature Gran % (Auto) 0.2 (0.0-0.4) % Neut % (Auto) 53.4 (45-73) % Lymph % (Auto) 27.8 (20-40) % [place] % (Auto) 13.0 H (2-11) % Eos % (Auto) 4.5 H (0-4) % Baso % (Auto) 1.1 (0-2) % Lymph # (Auto) 2.3 (1.2-4.9) X10*3/uL [place] # (Auto) 1.1 (0.1-1.2) X10*3/uL Eos # (Auto) 0.4 (0.0-0.4) X10*3/uL Baso # (Auto) 0.1 (0.0-0.2) X10*3/uL Abs Immat Gran (auto) 0.02 (0.00-0.03) X10*3/uL Absolute Neuts (auto) 4.5 (2.0-8.3) x10*3/uL Absolute Nucleated RBC 0.000 (0.0-0.012) X10*3/uL Nucleated RBC % (auto) 0.0 (0.0-0.2) /100WBC Sodium 143 (135-145) mmol/L Potassium 4.1 (3.3-5.1) mmol/L Chloride 107 (96-108) mmol/L Carbon Dioxide 28 (22-29) mmol/L Anion Gap 12 (12-20) BUN 17 H (9-16) mg/dL Creatinine 0.76 (0.5-1.4) mg/dL Estim Creat Clear Calc 120.1 Estimated GFR > 60 Random Glucose 91 (60-115) mg/dL Calcium 9.1 (8.4-10.2) mg/dL Magnesium 2.0 (1.6-2.6) mg/dL Total Bilirubin 0.8 (0.0-1.0) mg/dL AST 28 (5-37) U/L ALT 39 (0-40) U/L Alkaline Phosphatase 74 (39-117) U/L Troponin I High Sens < 2.7 < 2.7 (<3.5-35.0) ng/L Total Protein 7.3 (6.5-8.0) g/dL Albumin 4.6 (3.5-5.0) g/dL COVID-19 (LUIS ALBERTO) Negative (Negative) COVID-19 Clin Com See Note Influenza Type A (MADDISON) Negative (Negative) Influenza Type B (MADDISON) Negative (Negative) Influenza A & B Note See Note Independent Interpretation I performed an independent interpretation of an: EKG and Plain X-Ray Interpretation: I personally interpreted the EKG which reveals normal sinus rhythm without ST- elevation/depression, T-wave abnormality, lengthened QT Vent. Rate : 78 BPM Atrial Rate : 78 BPM P-R Int : 146 ms QRS Dur : 84 ms QT Int : 382 ms P-R-T Axes : 30 43 29 degrees QTcB Int : 435 ms Normal sinus rhythm Normal ECG When compared with ECG of 25-Jul-2021 05:41, No significant change was found I personally interpreted the chest x-ray which was negative for cardiomegaly, pleural effusion, pulmonary edema, infiltrates or consolidations, I agree with the radiologist's interpretation Radiology Impression Discussion of test interpretation with radiology: I have reviewed the radiologist's reading. Radiologist Impression: CXR FINDINGS: The cardiac, hilar, and mediastinal contours are normal. The lungs are clear bilaterally. No pneumothorax or effusion. No focal osseous or soft tissue abnormality. XR/XR chest 1V IMPRESSION: No active pulmonary disease. Electronically signed by: Elías De La Vega MD 01/07/2025 08:45 AM EDT RP Dictated By: Elías De La Vega MD Signed By: <Electronically signed by Elías De La Vega MD in OV> 01/07/25 0845 External Record Review External record reviewed: Inpatient record, Office record and Outpatient record Prescription Management I considered prescription management with: Other (Magnesium) I considered giving magnesium for SOB, asthma exacerbation however patient is resting comfortably, without increased work of breathing, speaking in full clear sentences, lungs clear to auscultation bilaterally with good breath sounds, no expiratory wheeze noted. Chronic Conditions Patient?s care impacted by: Other (Asthma, depression, hypothyroidism, hepatitis-C, HTN,) Discharge Plan Discharge Clinical Impression: Asthma Additional Instructions: You were evaluated in the ED today due to shortness of breath. You received 5 mg of albuterol from respiratory therapy while in the department, and 125 mg of Solu-Medrol which is a steroid to help open up the lungs with good effect on your symptoms. Your lab work was reassuring as there was no elevation in your white blood cells indicating infection, no evidence of anemia, no electrolyte imbalance. Your chest x-ray was normal. Your EKG was normal, your troponins which is an enzyme given off in the heart is in stress or damage were both negative. Your COVID and flu tests were negative as well. Please follow up with your primary care doctor to ensure resolution of symptoms, an adequate management of asthma. Please return to the emergency department if you experience chest pain, worsening shortness of breath, fevers over 100.4? that are not managed by Tylenol or Motrin, difficulty breathing, worsening cough, or any new/worsening/concerning symptoms. Prescriptions: No Action epinephrine [EpiPen] 0.3 mg/0.3 mL auto-injector 0.3 mg IM Q4H PRN (Reason: anaphylaxis) Qty: 2 0RF albuterol sulfate [Ventolin HFA] 90 mcg/actuation HFA aerosol inhaler 2 puff inhalation Q6-8H PRN (Reason: shortness of breath or wheezing) Qty: 18 3RF methylprednisolone 4 mg tablets,dose pack See Rx Instructions PO PER PKG DIR Qty: 21 0RF Rx Instructions: PO PER PKG DIR for 6 days benzonatate 200 mg capsule 200 mg PO .QHS PRN (Reason: cough) Qty: 10 0RF Print Language: [place]
[2025-01-07 09:13] LABS: IDNOW Serial# 58CA691E
[2025-01-07 09:14] LABS: COVID-19 Test Negative (Negative); IDNOW Serial# 55D5AD1C; Influenza B2 Negative (Negative)
[2025-01-07] MEDS: Albuterol Sulfate 2.5 MG, Albuterol Sulfate (0.083%) 2.5 MG 5 MG INHALE (09:15)
[2025-01-07 09:16] VITALS: PULSE 77; RESP 22; O2SAT 98
[2025-01-07 09:21] LABS: Hematocrit 45.8 % (42.0-52.0); Hemoglobin 17.1 g/dl (14.0-18.0); Imm Gran Abs Auto 0.02 X10*3/uL (0.00-0.03); Imm Gran Pct Auto 0.2 % (0.0-0.4); Lymphocytes Absolute Auto 2.3 X10*3/uL (1.2-4.9); MANUAL DIFF FLAG NO; Mean Corpuscular HGB Conc 37.3 g/dl (31.0-36.0); Mean Corpuscular Hemoglobin 31.5 pg (27.0-33.0); Mean Corpuscular Volume 84.5 fL (80.0-98.0); NRBC Abs Auto 0.000 X10*3/uL (0.0-0.012); NRBC Pct Auto 0.0 /100WBC (0.0-0.2); Platelet Count 260 X10*3/uL (160-400); Red Blood Count 5.42 X10*6/uL (4.60-5.80); White Blood Count 8.4 X10*3/uL (4.8-10.8)
[2025-01-07 09:38] LABS: Alanine Aminotransferase 39 U/L (0-40); Albumin Level 4.6 g/dL (3.5-5.0); Alkaline Phosphatase 74 U/L (39-117); Anion Gap 12 (12-20); Aspartate Amino Transferase 28 U/L (5-37); Blood Urea Nitrogen 17 mg/dL (9-16); Calcium 9.1 mg/dL (8.4-10.2); Carbon Dioxide 28 mmol/L (22-29); Chloride 107 mmol/L (96-108); Creatinine Clr Calc Pharmacy 120.1; Estimated Glomerular Filt Rate > 60; Magnesium 2.0 mg/dL (1.6-2.6); Potassium 4.1 mmol/L (3.3-5.1); Sodium 143 mmol/L (135-145); Total Protein 7.3 g/dL (6.5-8.0)
[2025-01-07 09:44] LABS: Troponin-I High Sensitivity < 2.7 ng/L (<3.5-35.0)
--- NOTE | 2025-01-07 10:08 | PC.NURSE ---
Addendum entered by Isa Quesada RN 01/07/25 10:08: Patient is 49-year-old male with medical history of asthma, hypothyroidism, hepatitis-C, HTN, depression presents to the ED due to SOB and cough that began last night. Patient states he began to feel short of breath while at work (works for [employer]). Patient states when he got home he developed some midsternal chest ?pressure? with a cough chest pain is intermittent and worse when coughing. Patient states he used albuterol pump this morning and felt mild relief of his symptoms. Alert an oriented. Respiration even and non-labored. Abdomen soft, non-tender with positive bowel sounds. No LE edema noted. Original Note: Medical History Overweight (BMI 25.0-29.9) Vitamin D deficiency Hypothyroidism (acquired) History of drug abuse Depression Hepatitis B core antibody positive Hypertension History of hepatitis C Family history of diabetes mellitus History of liver disease
[2025-01-07 10:57] LABS: Troponin-I High Sensitivity < 2.7 ng/L (<3.5-35.0)
[2025-01-07 11:11] VITALS: BP 138/68; PULSE 77; RESP 22; TEMP 37.1; O2SAT 95
== END 2025-01-07 11:11 | disposition home or self-care (01) ==
PROVIDERS: Emergency Provider Emergency Medicine; PCP Internal Medicine
DX: J45.909 Unspecified asthma, uncomplicated (principal); R06.02 Shortness of breath; R05.9 Cough, unspecified; Z11.52 Encounter for screening for COVID-19; Z79.899 Other long term (current) drug therapy
CPT/HCPCS: 36415; 71045; 80053; 83735; 84484; 85025; 87502; 87635; 93005; 94640; 96374; 99284; 99285; J2919

== ENCOUNTER → 2025-01-07 08:29 | Outpatient (BNV) | payer MEDICAID, SELFPAY | PROVIDERS: Emergency Provider Emergency Medicine; PCP Internal Medicine; Visit Provider Radiology Diagnostic Radiology | DX: R06.02 Shortness of breath (principal) | CPT/HCPCS: 71045 ==

== ENCOUNTER → 2025-01-07 08:47 | Outpatient (BNV) | payer SELFPAY | PROVIDERS: Emergency Provider Emergency Medicine; PCP Internal Medicine; Visit Provider Internal Medicine | DX: R06.02 Shortness of breath (principal) | CPT/HCPCS: 93010 ==